=== PATIENT | male | born 1960 | race Caucasian/White ===

== ENCOUNTER 2016-03-14 15:47 | Inpatient (IN) | payer OTHER ==
[2016-03-14] VITALS (7 sets, daily range): BP systolic 132–138; BP diastolic 61–81; PULSE 97–109; RESP 18–28; TEMP 98.1; O2SAT 89–95
[~2016-03-14] VITALS: Ht 177.8 cm; Wt 151.4 kg
[~2016-03-14 15:47] MED LIST: ALPR.25 PO; ASPI81TA11 PO; ATOR40TA PO; BUPR-175 PO; GABA100C4 PO; HUMUINJ5 SQ; HYDR-3580 PO; LEXA10TA PO; LOSA25TA31 PO; METO25 PO; PLAV75TA PO; RANI150T PO
[2016-03-14] MEDS ORDERED: GABA100C4 PO (16:09)
[2016-03-14] MEDS ORDERED: LEXA20TA PO ×2 (16:09→19:48)
[2016-03-14] MEDS ORDERED: METO25TA3 PO ×2 (16:09→19:46)
[2016-03-14] MEDS ORDERED: LOSA25TA PO (16:09)
[2016-03-14] MEDS ORDERED: ATOR40TA16 PO (16:09)
[2016-03-14] MEDS ORDERED: INSU100V2 SQ (16:09)
[2016-03-14] MEDS ORDERED: RANI150T PO (16:09)
[2016-03-14] MEDS ORDERED: WELLTAB39 PO (16:09)
[2016-03-14] MEDS ORDERED: PLAV75TA29 PO (16:09)
[2016-03-14] MEDS ORDERED: GABA600T PO (16:09)
[2016-03-14] MEDS ORDERED: FUROSEMIDE 40 MG/4 ML VIAL IVP ONE (16:15)
[2016-03-14] MEDS ORDERED: SODIUM CHLORIDE 0.9% FLUSH 5 ML FLUSH IVF PRN (16:15)
--- NOTE | 2016-03-14 16:16 | PD ---
HPI Chief Complaint: Respiratory Symptoms Time Seen by Provider: 16:07 Travel History International Travel<30 days: No Contact w/Intl Traveler<30days: No Traveled to known affect area: No History of Present Illness HPI 55yo M with PMH of CHF, DM with insulin pump, CAD s/p cardiac stent 10/2015 ( Follows with Dr. Pearson) was sent by PMD's office for evaluation of dyspnea. Pt has been having worsening sob for days and gained 16 pounds in 1.5 weeks. Denies any chest pain, oxygen use at home, n/v, abdominal pain, focal weakness or numbness. PFSH Past Medical History Hx Anticoagulant Therapy: Yes (plavix) Arthritis: Yes Blood Disorders: No Anxiety: Yes Depression: Yes Heart Rhythm Problems: No Cancer: Yes (NON-HODGKINS LYMPHOMA) Cardiac Catheterization: No Cardiovascular Problems: Yes (NC, CHF) High Cholesterol: No Chemotherapy: Yes Chest Pain: Yes Congestive Heart Failure: No Diabetes: Yes Patient Takes Glucophage: No Diminished Hearing: No Endocrine: No Gastrointestinal Disorders: No GERD: Yes Glaucoma: No Genitourinary: Yes Hepatitis: No Hiatal Hernia: No Hypertension: Yes Immune Disorder: Yes Musculoskeletal: Yes Neurologic: No Reproductive: No Respiratory: Yes (COPD) Integumentary: No Immunizations Current: No Thyroid Disease: No Past Surgical History Abdominal Surgery: Yes (UMBILICAL HERNIA REPAIR) Coronary Artery Bypass Graft: No Insulin Pump: Yes Other Surgery: Yes (insulin pump ) Family History Family Myocardial Infarction: Yes (Mother, and Aunts) Social History Alcohol Use: No Tobacco Use: No (FORMER SMOKER) Substance Use: No Allergies-Medications (Allergen,Severity, Reaction): Coded Allergies: No Known Allergies (Unverified , 03/14/16) Reported Meds & Prescriptions Reported Meds & Active Scripts Active Reported Metoprolol Tartrate 25 Mg Tab 25 Mg PO BID Percocet (Oxycodone-Acetaminophen) 5-325 mg Tab 1 Tab PO Q6H PRN Lortab (Hydrocodone-Acetaminophen) 7.5-325 Mg Tab 1 Tab PO Q4H PRN Humulin R Inj (Insulin Human Regular) 1,000 Unit/10 Ml Vial 1 Units SQ ONCE Wellbutrin Xl 24 HR (Bupropion HCl) 300 Mg Tab 300 Mg PO DAILY Lexapro (Escitalopram Oxalate) 20 Mg Tab 20 Mg PO DAILY Gabapentin 600 Mg Tab 600 Mg PO BID Plavix (Clopidogrel Bisulfate) 75 Mg Tab 75 Mg PO DAILY Ranitidine (Ranitidine HCl) 150 Mg Tab 150 Mg PO BID Losartan (Losartan Potassium) 25 Mg Tab 25 Mg PO DAILY Atorvastatin (Atorvastatin Calcium) 40 Mg Tab 40 Mg PO HS Review of Systems Except as stated in HPI: all other systems reviewed are Neg Physical Exam Narrative GENERAL: 55yo M in moderate distress. SKIN: Warm and dry. HEAD: Atraumatic. Normocephalic. NECK: Trachea midline. No JVD. CARDIOVASCULAR: Regular rate and rhythm. No murmur appreciated. RESPIRATORY: + accessory muscle use. End expiratory wheezing bilaterally. GASTROINTESTINAL: Abdomen soft, non-tender, nondistended. Hepatic and splenic margins not palpable. MUSCULOSKELETAL: No obvious deformities. No clubbing. No cyanosis. +Pitting bilateral lower ext edema. NEUROLOGICAL: Awake and alert. No obvious cranial nerve deficits. Motor grossly within normal limits. Normal speech. PSYCHIATRIC: Appropriate mood and affect; insight and judgment normal. Data Data Last Documented VS Vital Signs Date Time Temp Pulse Resp B/P Pulse Ox O2 Delivery O2 Flow Rate FiO2 03/14/16 16:49 95 Nasal Cannula 5.00 03/14/16 16:04 22 03/14/16 15:50 98.1 97 136/80 Orders Complete Blood Count With Diff (03/14/16 16:07) Basic Metabolic Panel (Bmp) (03/14/16 16:07) B-Type Natriuretic Peptide (03/14/16 16:07) Act Partial Throm Time (Ptt) (03/14/16 16:07) Prothrombin Time / Inr (Pt) (03/14/16 16:07) Ckmb (Isoenzyme) Profile (03/14/16 16:07) Troponin I (03/14/16 16:07) Arterial Blood Gas (Abg) (03/14/16 16:07) Iv Access Insert/Monitor (03/14/16 16:07) Electrocardiogram (03/14/16 16:07) Ecg Monitoring (03/14/16 16:07) Oximetry (03/14/16 16:07) Oxygen Administration (03/14/16 16:07) Chest, Single Ap (03/14/16 16:07) Sodium Chloride 0.9% Flush (Ns Flush) (03/14/16 16:15) Furosemide Inj (Lasix Inj) (03/14/16 16:15) Methylprednisolone So Succ Inj (Solumedr (03/14/16 16:30) Albuterol-Ipratropium Neb (Duoneb Neb) (03/14/16 16:30) CKMB (03/14/16 16:15) CKMB% (03/14/16 16:15) Ct Pulmonary Angiogram (03/14/16 ) Labs Laboratory Tests Test 03/14/16 16:15 White Blood Count 8.0 TH/MM3 Red Blood Count 4.76 MIL/MM3 Hemoglobin 13.5 GM/DL Hematocrit 40.9 % Mean Corpuscular Volume 86.0 FL Mean Corpuscular Hemoglobin 28.3 PG Mean Corpuscular Hemoglobin 32.9 % Concent Red Cell Distribution Width 14.1 % Platelet Count 198 TH/MM3 Mean Platelet Volume 8.9 FL Neutrophils (%) (Auto) 64.1 % Lymphocytes (%) (Auto) 22.8 % Monocytes (%) (Auto) 9.9 % Eosinophils (%) (Auto) 2.3 % Basophils (%) (Auto) 0.9 % Neutrophils # (Auto) 5.1 TH/MM3 Lymphocytes # (Auto) 1.8 TH/MM3 Monocytes # (Auto) 0.8 TH/MM3 Eosinophils # (Auto) 0.2 TH/MM3 Basophils # (Auto) 0.1 TH/MM3 CBC Comment DIFF FINAL Differential Comment Prothrombin Time 11.1 SEC Prothromb Time International 1.0 RATIO Ratio Activated Partial 25.9 SEC Thromboplast Time Blood Gas Puncture Site RT RADIAL Blood Gas Patient Temperature 98.6 Blood Gas HCO3 29 mmol/L Blood Gas Base Excess 3.8 mmol/L Blood Gas Oxygen Saturation 89 % Arterial Blood pH 7.39 Arterial Blood Partial 48 mmHg Pressure CO2 Arterial Blood Partial 69 mmHG Pressure O2 Arterial Blood Oxygen Content 16.5 Vol % Arterial Blood 2.3 % Carboxyhemoglobin Arterial Blood Methemoglobin 2.1 % Blood Gas Hemoglobin 13.2 G/DL Oxygen Delivery Device NASAL CANNULA Blood Gas Liter Flow 3 L/M Sodium Level 140 MEQ/L Potassium Level 4.4 MEQ/L Chloride Level 104 MEQ/L Carbon Dioxide Level 28.4 MEQ/L Anion Gap 8 MEQ/L Blood Urea Nitrogen 23 MG/DL Creatinine 0.91 MG/DL Estimat Glomerular Filtration 86 ML/MIN Rate Random Glucose 199 MG/DL Calcium Level 8.5 MG/DL Total Creatine Kinase 184 U/L Creatine Kinase MB 4.1 NG/ML Troponin I LESS THAN 0.02 NG/ML B-Type Natriuretic Peptide 69 PG/ML MDM Medical Decision Making Medical Screen Exam Complete: Yes Emergency Medical Condition: Yes Interpretation(s) EKG: NSR 92bpm. Normal axis. Q wave III. No ST segment elevation or depression. Differential Diagnosis CHF exacerbation vs. PNA vs. ACS vs. COPD exacerbation (although pt has no history of it but is a former smoker) Narrative Course 55yo M with CHF, CAD, DM here with worsening sob and weight gain. Impression is CHF exacerbation. Pt is suppose to take lasix PRN but did not. Pt given lasix 40mg IV. Labs reviewed, no leukocytosis. BNP normal at 69. Troponin negative. BUN mildly elevated. Glucose 199. ABG showed that pt is hypoxic at 89% saturation on 3 L NC. pCO2 mildly elevated at 48. Pt's nasal cannula increased to 5 L. CXR showed compensated cardiomegaly. No parenchymal infiltrates. Pt reevaluated after duonebs x3 and methylprednisolone and states he feels better. Impression is more COPD exacerbation now. Pt still with expiratory wheezing bilaterally and now with increased air entry. Will still obtain CT angio to r/ o PE. CTA showed no PE. Will admit for COPD exacerbation. Diagnosis Primary Impression: COPD (chronic obstructive pulmonary disease) Qualified Code: J44.9 - Chronic obstructive pulmonary disease, unspecified COPD type Admitting Information Admitting Physician Requests: Admit Gabriella Kimble DO Mar 14, 2016 16:16 Gabriella Kimble DO Mar 14, 2016 16:16
[2016-03-14 16:23] LABS: AUTOMATED NEUTROPHIL # 5.1 TH/MM3 (1.8-7.7); BASOPHIL # 0.1 TH/MM3 (0-0.2); BASOPHIL % 0.9 % (0.0-2.0); EOSINOPHIL # 0.2 TH/MM3 (0-0.4); EOSINOPHIL % 2.3 % (0.0-4.0); HEMATOCRIT 40.9 % (39.0-51.0); HEMO FLAGS DIFF FINAL; LYMPH % 22.8 % (9.0-44.0); LYMPHOCYTE # 1.8 TH/MM3 (1.0-4.8); MEAN CORPUSCULAR HEMOGLOBIN 28.3 PG (27.0-34.0); MEAN CORPUSCULAR HGB CONC 32.9 % (32.0-36.0); MONO % 9.9 % (0.0-8.0); NEUT % 64.1 % (16.0-70.0); PLATELET COUNT 198 TH/MM3 (150-450); RED BLOOD COUNT 4.76 MIL/MM3 (4.50-5.90); RED CELL DISTRIBUTION WIDTH 14.1 % (11.6-17.2)
[2016-03-14] MEDS ORDERED: methylPREDNISolone SOD SUCC 125 MG/2 ML VIAL IVP ONE (16:30)
[2016-03-14 16:31] LABS: APTT (PATIENT) 25.9 SEC (24.3-30.1); PROTHROMBIN TIME - PATIENT 11.1 SEC (9.8-11.6)
[2016-03-14 16:37] LABS: BLOOD GAS BASE EXCESS 3.8 mmol/L (-2-2); BLOOD GAS CARBOXYHEMOGLOBIN 2.3 % (0-4); BLOOD GAS HCO3 29 mmol/L (22-26); BLOOD GAS METHEMOGLOBIN 2.1 % (0-2); BLOOD GAS O2 HGB SATURATION 89 % (90-100); BLOOD GAS OXYGEN CONTENT 16.5 Vol % (12.0-20.0); BLOOD GAS PCO2 48 mmHg (38-42); BLOOD GAS PO2 69 mmHG (61-120); BLOOD GAS TOTAL HGB 13.2 G/DL (12.0-16.0); CRITICAL VALUE YES; DRAW SITE RT RADIAL; LITER FLOW 3 L/M; NUMBER OF ARTERIAL PUNCTURES 1; OXYGEN DEVICE NASAL CANNULA; STAT YES; TEMP CORR TO 98.6
[2016-03-14 16:41] LABS: ANION GAP 8 MEQ/L (5-15); BICARBONATE 28.4 MEQ/L (21.0-32.0); BLOOD UREA NITROGEN 23 MG/DL (7-18); CHLORIDE 104 MEQ/L (98-107); GLOMERULAR FILTRATION RATE 86 ML/MIN (>89); POTASSIUM 4.4 MEQ/L (3.5-5.1); SODIUM (NA) 140 MEQ/L (136-145)
[2016-03-14 16:44] LABS: CREATINE KINASE 184 U/L (39-308)
[2016-03-14] MEDS: RESP: ALBUTEROL 2.5 MG/IPRATROPIUM 0.5 MG NEB (SCH) INH ×3 (16:47→17:14)
[2016-03-14] MEDS ORDERED: HYDR-3534 PO (16:54)
[2016-03-14] MEDS ORDERED: PERC5TAB12 PO (16:54)
[2016-03-14 16:57] LABS: CKMB 4.1 NG/ML (0.5-3.6)
--- NOTE | 2016-03-14 17:02 | RADRPT ---
EXAM DATE/TIME: 03/14/2016 16:31 [facility] COMPARISON: CHEST SINGLE AP, October 10, 2015, 17:23. INDICATIONS: Shortness of breath. MEDICAL HISTORY: Myocardial infarction. Congestive heart failure. Diabetes mellitus type II. SURGICAL HISTORY: Stents. ENCOUNTER: Initial ACUITY: 1 week PAIN SCORE: 0/10 LOCATION: Bilateral chest FINDINGS: There is compensated cardiomegaly with no overt congestive failure or parenchymal infiltrates. Portio n of bony skeleton visualized unremarkable. CONCLUSION: Compensated cardiomegaly. Fermin Parry MD FACR on March 14, 2016 at 16:51 Board Certified Radiologist. This report was verified electronically.
[2016-03-14] MEDS ORDERED: IOHEXOL 350 MG/ML 10 ML VIAL (for RAD DIAG) IV ONE (18:13)
[2016-03-14] MEDS ORDERED: NALOXONE HCL 0.4 MG/ML AMP IV PRN (18:15)
[2016-03-14] MEDS ORDERED: ACETAMINOPHEN 325 MG TAB PO PRN (18:15)
[2016-03-14] MEDS ORDERED: DEXTROSE 50% IN WATER 50 ML VIAL(D50) IV PUSH PRN (18:15)
[2016-03-14] MEDS ORDERED: SODIUM CHLORIDE 0.9% FLUSH 5 ML FLUSH FLUSH PRN (18:15)
[2016-03-14] MEDS ORDERED: ONDANSETRON HCL 4 MG/2 ML VIAL IVP PRN (18:15)
[2016-03-14] MEDS ORDERED: GLUCAGON 1 MG/ML VIAL OTHER PRN (18:15)
--- NOTE | 2016-03-14 18:24 | HHI.HP ---
[facility] Primary Care Physician Bebo Granados MD Admission Diagnosis COPD exacerbation, hypoxemia Diagnoses: Chief Complaint: Progressive worsening shortness of breath Travel History International Travel<30 Days: No Contact w/Intl Traveler <30 Da: No Traveled to Known Affected Are: No History of Present Illness This is an extremely pleasant 55-year-old gentleman with a past medical history which includes CAD status post stent to cover 2015, diabetes mellitus with insulin pump, anxiety/depression, CHF, non-Hodgkin's lymphoma treated with chemotherapy approximately 21 years ago, bilateral lower extremity neuropathy, chronic back pain, vertigo, hypertension. Patient presents to the emergency department today as he was sent by his primary care provider for progressive shortness of breath. Patient reports that he is unable to lay flat at night and he feels as though he is, "drowning." When patient lays flat he reports he has a nonproductive dry cough he has to use 3 pillows to sleep at night and has gained 19 pounds in the past 2 weeks. Patient is audibly wheezing with decreased air movement throughout. Patient believes the symptoms have been getting progressively worse over the past week but his thinks it has been longer than that. Patient reports his last long trip was over the summer when he drove to [place] and back. Patient reports no recent travel or extended periods of immobility. Although patient has been using a walker for the past 2 months due to poor balance Patient reports urinary incontinence only at night since September. Patient also reports numbness in the groin region since September this has been evaluated at [facility] and also being followed by Dr. Shah. Patient denies chest pain nausea vomiting diarrhea or constipation. Review of Systems Other All other systems reviewed and negative except as mentioned in history of present illness. Past Family Social History Past Medical History CAD status post stent to cover 2015, diabetes mellitus with insulin pump, anxiety/depression, CHF, non-Hodgkin's lymphoma treated with chemotherapy approximately 21 years ago, bilateral lower extremity neuropathy, chronic back pain, vertigo, hypertension. Past Surgical History Cardiac catheterization with stent placement October 2015 Umbilical hernia repair Right ankle fusion Reported Medications Percocet (Oxycodone-Acetaminophen) 5-325 mg Tab 1 Tab PO Q6H PRN Lortab (Hydrocodone-Acetaminophen) 7.5-325 Mg Tab 1 Tab PO Q4H PRN Humulin R Inj (Insulin Human Regular) 1,000 Unit/10 Ml Vial 1 Units SQ ONCE Wellbutrin Xl 24 HR (Bupropion HCl) 300 Mg Tab 300 Mg PO DAILY Lexapro (Escitalopram Oxalate) 20 Mg Tab 20 Mg PO DAILY Gabapentin 600 Mg Tab 600 Mg PO BID Gabapentin 100 Mg Cap 1,200 Mg PO BID Plavix (Clopidogrel Bisulfate) 75 Mg Tab 75 Mg PO DAILY Ranitidine (Ranitidine HCl) 150 Mg Tab 150 Mg PO BID Metoprolol Tartrate 25 Mg Tab 25 Mg PO DAILY Losartan (Losartan Potassium) 25 Mg Tab 25 Mg PO DAILY Atorvastatin (Atorvastatin Calcium) 40 Mg Tab 40 Mg PO HS Allergies: Coded Allergies: No Known Allergies (Unverified , 03/14/16) Active Ordered Medications Current Medications Medications (Trade) Dose Ordered Sig/Har[place] Start Time Stop Time Status Last Admin (NS Flush) 2 ml UNSCH PRN IVF 03/14/16 16:15 Family History Mother and sister both had CAD Mother also had pancreatic cancer Grandmother had breast cancer Social History Patient was at home with his denies EtOH use tobacco use or illicit drug use at this time Patient quit smoking cigarettes approximally 40 years ago prior to that he smoked one pack a day for 2 years Physical Exam Vital Signs Vital Signs Date Time Temp Pulse Resp B/P Pulse Ox O2 Delivery O2 Flow Rate FiO2 03/14/16 16:49 95 Nasal Cannula 5.00 03/14/16 16:10 89 03/14/16 16:10 94 Nasal Cannula 3 03/14/16 16:04 89 Room Air 03/14/16 16:04 22 03/14/16 15:50 98.1 97 18 136/80 90 Physical Exam GENERAL: This is a morbidly obese male visibly short of breath using accessory muscles HEAD: Atraumatic. Normocephalic. No temporal or scalp tenderness. EYES: Extraocular motions intact. No scleral icterus. No injection or drainage. CARDIOVASCULAR: Regular rate and rhythm without murmurs, gallops, or rubs. RESPIRATORY: Diminished air entry throughout with scattered expiratory wheezing GASTROINTESTINAL: Abdomen soft, non-tender, nondistended.No guarding. MUSCULOSKELETAL: Bilateral lower extremity 1-2+ edema No calf tenderness. Negative Homans sign bilaterally. NEUROLOGICAL: Awake and alert. Motor and sensory grossly within normal limits. 4out of 5 muscle strength in all muscle groups. Normal speech. Patient also reports numbness to groin area Laboratory Laboratory Tests Test 03/14/16 16:15 White Blood Count 8.0 Red Blood Count 4.76 Hemoglobin 13.5 Hematocrit 40.9 Mean Corpuscular Volume 86.0 Mean Corpuscular Hemoglobin 28.3 Mean Corpuscular Hemoglobin 32.9 Concent Red Cell Distribution Width 14.1 Platelet Count 198 Mean Platelet Volume 8.9 Neutrophils (%) (Auto) 64.1 Lymphocytes (%) (Auto) 22.8 Monocytes (%) (Auto) 9.9 Eosinophils (%) (Auto) 2.3 Basophils (%) (Auto) 0.9 Neutrophils # (Auto) 5.1 Lymphocytes # (Auto) 1.8 Monocytes # (Auto) 0.8 Eosinophils # (Auto) 0.2 Basophils # (Auto) 0.1 CBC Comment DIFF FINAL Differential Comment Prothrombin Time 11.1 Prothromb Time International 1.0 Ratio Activated Partial 25.9 Thromboplast Time Blood Gas Puncture Site RT RADIAL Blood Gas Patient Temperature 98.6 Blood Gas HCO3 29 Blood Gas Base Excess 3.8 Blood Gas Oxygen Saturation 89 Arterial Blood pH 7.39 Arterial Blood Partial 48 Pressure CO2 Arterial Blood Partial 69 Pressure O2 Arterial Blood Oxygen Content 16.5 Arterial Blood 2.3 Carboxyhemoglobin Arterial Blood Methemoglobin 2.1 Blood Gas Hemoglobin 13.2 Oxygen Delivery Device NASAL CANNULA Blood Gas Liter Flow 3 Sodium Level 140 Potassium Level 4.4 Chloride Level 104 Carbon Dioxide Level 28.4 Anion Gap 8 Blood Urea Nitrogen 23 Creatinine 0.91 Estimat Glomerular Filtration 86 Rate Random Glucose 199 Calcium Level 8.5 Total Creatine Kinase 184 Creatine Kinase MB 4.1 Troponin I LESS THAN 0.02 B-Type Natriuretic Peptide 69 Result Diagram: 03/14/16 1615 03/14/16 1615 Imaging Last Impressions Chest X-Ray 03/14/16 1607 Signed Impressions: Service Date/Time: Monday, March 14, 2016 16:31 - CONCLUSION: Compensated cardiomegaly. Fermin Parry MD FACR Assessment and Plan Assessment and Plan This is an extremely pleasant 55-year-old gentleman with a past medical history which includes CAD status post stent to cover 2016, diabetes mellitus with insulin pump, anxiety/depression, CHF, non-Hodgkin's lymphoma treated with chemotherapy approximately 21 years ago, bilateral lower extremity neuropathy, chronic back pain, vertigo, hypertension. Patient presents to the emergency department today as he was sent by his primary care provider for progressive shortness of breath. COPD exacerbation versus acute on chronic CHF exacerbation versus pulmonary embolism Compensated respiratory acidosis with hypoxemia CT angiogram to rule out PE pending 125 mg of Solu-Medrol given in emergency department will continue Solu- Medrol every 8 hours IV Duo nebs every 4 hours and when necessary Pulmonary consult 40 mg IV Lasix given times one in emergency department will continue 40 mg IV Lasix daily with potassium supplementation next line BNP only 69 Consult cardiology patient known to Dr. Pearson Diabetes mellitus on insulin pump Accu-Cheks before meals at bedtime with left low-dose sliding scale insulin coverage patient may continue to use insulin pump on the hospital CAD continue aspirin and Plavix and atorvastatin 40 mg daily at bedtime Check echocardiogram Hypertension continue losartan 25 mg daily and metoprolol at 25 mg daily Anxiety/depression continue Wellbutrin as well as Lexapro Peripheral neuropathy continue gabapentin DVT prophylaxis with Lovenox Plan of care discussed with ER provider, RN, patient and Dr. Terry ATTENDING NOTES I saw and evaluated the patient. I agree with the resident's finding and plan of care as documented above. Details of my evaluation are as follows: Mr. Bender is 55 years old male, increasing lower extremities edema, shortness of breath, orthopnea and faitgability for the last 2 weeks. with increase weight gain patient was supposed to be on diuretics but not taking history of COPD not 02 dependent on initial evaluation with wheezing given IV steroids and Lasix 40 mg IV patient feeling better Exam- occasional expiratory wheezes regular rhythm extremities- + edema Acute respiratory failure with hypoxemia - COPD exacerbation MARCIO suspect- d/w family- apneic episodes at night need sleep studies done as OP Continue on IV steroids. consult Pulmonary- Dr. Dunham get a pulmonary function tests walk test prior to DC- quallify for home 02 History of CAD S/P stent Peripheral Edema- normal BNP Dr. Pearson his slubber tender is consulted continue cardiac meds- BB, ARB, Plavix, Lasix DM on insulin pump - basal rate of about 1/2 units per hour sliding scale while in house. expect sugars to be elevated with steroids Lovenox/PPI for prophylaxis The exam, history, and the medical decision-making described in the above note were completed with the assistance of the mid-level provider. I reviewed and agree with the findings presented. I attest that I had a [id number] encounter with the patient on the same day, and personally performed and documented my assessment and findings in the medical record. Discussed Condition With Attending notes: Mr. Bender is 55 years old male, increasing lower extremities edema, shortness of breath, orthopnea and faitgability for the last 2 weeks. with increase weight gain patient was supposed to be on diuretics but not taking history of COPD not 02 dependent on initial evaluation with wheezing given IV steroids and Lasix 40 mg IV patient feeling better Exam- occasional expiratory wheezes regular rhythm extremities- + Leg edema Acute respiratory failure with hypoxemia COPD exacerbation MARCIO suspect- d/w family- apneic episodes at night need sleep studies done as OP History of CAD S/P stent Peripheral Edema - with edema on exam although BNP is not elevated Continue on IV steroids. consult Pulmonary- Dr. Charla Pearson his slubber tender is consulted. get Echo continue cardiac meds Lovenox for DVT prophylaxis will do a walk test prior to DC- to qualify for home 02 DM type 2 insulin requiring FF BS on steroids Lovenox/PPI for prophylaxis The exam, history, and the medical decision-making described in the above note were completed with the assistance of the mid-level provider. I reviewed and agree with the findings presented. I attest that I had a [id number] encounter with the patient on the same day, and personally performed and documented my assessment and findings in the medical record. Physician Certification 2 Midnight Certification Type: Admission for Inpatient Services Order for Inpatient Services The services are ordered in accordance with Medicare regulations or non- Medicare payer requirements, as applicable. In the case of services not specified as inpatient-only, they are appropriately provided as inpatient services in accordance with the 2-midnight benchmark. Estimated LOS (days): 4 days is the estimated time the patient will need to remain in the hospital, assuming treatment plan goals are met and no additional complications. Post-Hospital Plan: Home Morenita Cortez Mar 14, 2016 18:24 Lolis Gasca MD Mar 14, 2016 19:05
[2016-03-14] MEDS ORDERED: RESP: ALBUTEROL 2.5 MG/IPRATROPIUM 0.5 MG NEB (PRN) NEB (18:45)
--- NOTE | 2016-03-14 18:51 | RADRPT ---
EXAM DATE/TIME: 03/14/2016 18:05 [facility] COMPARISON: No previous studies available for comparison. INDICATIONS : Chest pain with shortness of breath past 2 weeks. IV CONTRAST: 65 cc Omnipaque 350 (iohexol) IV RADIATION DOSE: 31.76 CTDIvol (mGy) MEDICAL HISTORY : Myocardial infarction. Chronic obstructive pulmonary disease. Congestive heart failure.non-hodgkins l ymphoma SURGICAL HISTORY : insulin pump, cardiac catheterization ENCOUNTER: Initial ACUITY: 2 weeks PAIN SCALE: 8/10 LOCATION: Bilateral chest TECHNIQUE: Volumetric scanning of the chest was performed using a pulmonary embolism protocol MIP images were re constructed. Using automated exposure control and adjustment of the mA and/or kV according to patien t size, radiation dose was kept as low as reasonably achievable to obtain optimal diagnostic quality images. FINDINGS: No filling defects identified to suggest pulmonary embolic disease. No pleural or pericardial effusio n. There is dependent atelectasis in the lungs. No hilar, mediastinal or axillary adenopathy. Moderat e coronary calcifications. No acute findings in the upper abdomen. Fatty liver. No gallstones or bili chrystal ductal dilatation. CONCLUSION: 1. Negative for pulmonary embolus. Dependent atelectasis in the lungs. No effusions. No adenopathy. Silverio Hunt MD on March 14, 2016 at 18:45 Board Certified Radiologist. This report was verified electronically.
[2016-03-14] MEDS ORDERED: PANTOPRAZOLE SODIUM 40 MG VIAL IV PUSH SCH (19:30)
[2016-03-14] MEDS ORDERED: BUPR150CR PO (19:47)
[2016-03-14] MEDS: RESP: ALBUTEROL 2.5 MG/IPRATROPIUM 0.5 MG NEB (SCH) NEB (19:53)
[2016-03-14] MEDS ORDERED: ENOXAPARIN SODIUM 40 MG/0.4 ML SYRINGE SQ SCH (20:00)
[2016-03-14] MEDS: buPROPion HCL 150 MG SUSTAINED RELEASE TAB PO SCH (20:30)
[2016-03-14] MEDS: SODIUM CHLORIDE 0.9% FLUSH 5 ML FLUSH FLUSH SCH (20:53)
[2016-03-14] MEDS: FAMOTIDINE 20 MG TAB PO SCH (20:53)
[2016-03-14] MEDS: DOCUSATE SODIUM 100 MG CAP PO SCH (20:53)
[2016-03-14] MEDS: ENOXAPARIN SODIUM 40 MG/0.4 ML SYRINGE SQ SCH (20:53)
[2016-03-14] MEDS: ACETAMINOPHEN/HYDROcodone 325 MG/7.5 MG TAB PO PRN (20:54)
[2016-03-14] MEDS ORDERED: GABAPENTIN 400 MG CAP PO SCH (21:00)
[2016-03-14] MEDS: ATORVASTATIN 40 MG TAB PO SCH (21:03)
[2016-03-14] MEDS: INSULIN ASPART SUPPLEMENTAL SCALE SQ SCH (21:03)
[2016-03-14] MEDS ORDERED: METOPROLOL TARTRATE 25 MG TAB PO ONE (21:45)
[2016-03-14] MEDS ORDERED: METOPROLOL TARTRATE 25 MG TAB PO SCH (22:30)
[2016-03-14] MEDS: GABAPENTIN 300 MG CAP PO SCH (22:33)
[2016-03-15] VITALS (17 sets, daily range): BP systolic 128–164; BP diastolic 62–88; PULSE 90–116; RESP 16–22; TEMP 97.6; O2SAT 63–97
[2016-03-15] MEDS: methylPREDNISolone SOD SUCC 125 MG/2 ML VIAL IV PUSH SCH ×2 (00:30→09:35)
[2016-03-15] MEDS: ACETAMINOPHEN/HYDROcodone 325 MG/7.5 MG TAB PO PRN ×4 (00:31→21:08)
[2016-03-15] MEDS: RESP: ALBUTEROL 2.5 MG/IPRATROPIUM 0.5 MG NEB (SCH) NEB ×6 (00:56→19:21)
[2016-03-15 04:30] LABS: AUTOMATED NEUTROPHIL # 6.8 TH/MM3 (1.8-7.7); BASOPHIL % 0.1 % (0.0-2.0); HEMATOCRIT 39.4 % (39.0-51.0); HEMO FLAGS DIFF FINAL; LYMPH % 6.3 % (9.0-44.0); LYMPHOCYTE # 0.5 TH/MM3 (1.0-4.8); MEAN CELL VOLUME 85.6 FL (80.0-100.0); MEAN CORPUSCULAR HEMOGLOBIN 28.7 PG (27.0-34.0); MEAN CORPUSCULAR HGB CONC 33.5 % (32.0-36.0); MONO % 0.7 % (0.0-8.0); NEUT % 92.9 % (16.0-70.0); PLATELET COUNT 176 TH/MM3 (150-450); RED CELL DISTRIBUTION WIDTH 14.7 % (11.6-17.2); WHITE BLOOD COUNT 7.3 TH/MM3 (4.0-11.0)
[2016-03-15 05:00] LABS: BICARBONATE 25.9 MEQ/L (21.0-32.0); POTASSIUM 4.5 MEQ/L (3.5-5.1)
[2016-03-15] MEDS ORDERED: METOPROLOL TARTRATE 25 MG TAB PO SCH (09:00)
[2016-03-15] MEDS: DOCUSATE SODIUM 100 MG CAP PO SCH ×2 (09:33→21:09)
[2016-03-15] MEDS: INSULIN ASPART SUPPLEMENTAL SCALE SQ SCH ×4 (09:33→21:05)
[2016-03-15] MEDS: FUROSEMIDE 40 MG/4 ML VIAL IV PUSH SCH (09:34)
[2016-03-15] MEDS: LOSARTAN 25 MG TAB PO SCH (09:36)
[2016-03-15] MEDS: ASPIRIN EC 81 MG TABEC PO SCH (09:37)
[2016-03-15] MEDS: POTASSIUM CHLORIDE 20 MEQ CONTROLLED RELEASE TAB PO SCH (09:37)
[2016-03-15] MEDS: ESCITALOPRAM OXALATE 20 MG TAB PO SCH (09:38)
[2016-03-15] MEDS: GABAPENTIN 300 MG CAP PO SCH ×2 (09:39→21:10)
[2016-03-15] MEDS: METOPROLOL TARTRATE 25 MG TAB PO SCH ×2 (09:39→21:10)
[2016-03-15] MEDS: CLOPIDOGREL 75 MG TAB PO SCH (09:40)
[2016-03-15] MEDS: FAMOTIDINE 20 MG TAB PO SCH ×2 (09:40→21:09)
--- NOTE | 2016-03-15 10:05 | PD.CONS ---
HPI Service Cardiology Physicians Consult Requested By DARIEL Cortez Reason for Consult CHF exacerbation, ASHD Primary Care Physician Bebo Granados MD History of Present Illness The patient is a 55 year old male known to our practice with a cardiac history of ASHD s/p LAD stent 10/2015, chronic diastolic CHF, HLD, IDDM, tobacco history and obesity. Other notable history is COPD and hx of positive sleep apnea evaluation. The patient presented to the hospital per the recommendation of his PCP for progressively worsening SOB, lower extremity edema and 19 lb weight gain. He was instructed to use Aldactone PRN in the past for CHF symptoms, but the patient did not try to use the medication for symptom relief. He denies heaviness or pressure. His daughter is getting in [place] this weekend and wants to go home soon. (Socorro Brar) Review of Systems Consitutional: COMPLAINS OF: Weight gain, DENIES: Fatigue, Fever, Chills, Weight loss Eyes: DENIES: Amaurosis Fugax, Change in vision HEENT: DENIES: Lightheadedness, Change in hearing Respiratory: COMPLAINS OF: Shortness of breath, Wheezing, DENIES: See HPI, Cough, Snoring, Sputum production Cardiovascular: DENIES: See HPI, Chest pain, Palpitations, Syncope, Tachycardia Gastrointestinal: DENIES: Nausea, Vomiting, Change in bowel habits, Reflux, Bloody stools, Melena Genitourinary: COMPLAINS OF: Urinary incontinence Integumentary: DENIES: Rash Neurologic: DENIES: Tingling or numbness, Memory problems, Poor Balance, Stroke symptoms Musculoskeletal: COMPLAINS OF: Back pain, DENIES: Joint pain, Muscle pain, Limited range of motion Psychiatric: DENIES: Anxiety, Depression, Sleep disturbances Hematologic: DENIES: Bruising tendencies, Bleeding tendencies Endocrine: COMPLAINS OF: Weight gain, DENIES: Weight loss, Thyroid disease ( Socorro Brar) Past Family Social History Allergies: Coded Allergies: No Known Allergies (Unverified , 03/14/16) Past Medical History ASHD Diastolic CHF chronic IDDM COPD Sleep apnea Chronic back pain HLD Obesity Neurogenic bladder Peripheral neuropathy Chronic back pain Past Surgical History heart cath 10/2015 ankle surgery back surgery hernia repair Reported Medications Reviewed Active Ordered Medications Current Medications Medications (Trade) Dose Ordered Sig/Harvey Route Start Time Stop Time Status Last Admin (NS Flush) 2 ml UNSCH PRN FLUSH 03/14/16 18:15 (NS Flush) 2 ml BID FLUSH 03/14/16 21:00 03/15/16 10:33 (Tylenol) 650 mg Q4H PRN PO 03/14/16 18:15 (Zofran Inj) 4 mg Q6H PRN IVP 03/14/16 18:15 (Colace) 100 mg Q12H PO 03/14/16 20:00 03/15/16 09:33 (Narcan Inj) 0.4 mg UNSCH PRN IV 03/14/16 18:15 (Lasix Inj) 40 mg DAILY IV PUSH 03/15/16 09:00 03/15/16 09:34 (KCl) 20 meq DAILY PO 03/15/16 09:00 03/15/16 09:37 (D50w (Vial) Inj) 25 ml UNSCH PRN IV PUSH 03/14/16 18:15 (Glucagon Inj) 1 mg UNSCH PRN OTHER 03/14/16 18:15 (Lipitor) 40 mg HS PO 03/14/16 21:00 03/14/16 21:03 (Wellbutrin Sr) 150 mg BID PO 03/14/16 21:00 03/15/16 10:31 (Plavix) 75 mg DAILY PO 03/15/16 09:00 03/15/16 09:40 (Lexapro) 20 mg DAILY PO 03/15/16 09:00 03/15/16 09:38 (Cozaar) 25 mg DAILY PO 03/15/16 09:00 03/15/16 09:36 (Pepcid) 20 mg BID PO 03/14/16 21:00 03/15/16 09:40 (Ecotrin Ec) 81 mg DAILY PO 03/15/16 09:00 03/15/16 09:37 (Lovenox Inj) 40 mg Q24H SQ 03/14/16 20:00 03/14/16 20:53 ([place] 7.5-325 Mg) 1 tab Q6H PRN PO 03/14/16 20:45 03/15/16 05:51 (Neurontin) 600 mg BID PO 03/14/16 21:45 03/15/16 09:39 (Lopressor) 25 mg Q12HR PO 03/15/16 09:00 03/15/16 09:39 (SoluMEDROL INJ) 40 mg Q12H IV PUSH 03/15/16 21:00 Family History non contributory Social History Lives with , former smoker (Socorro Brar MAXWELL) Physical Exam Vital Signs Vital Signs Date Time Temp Pulse Resp B/P Pulse Ox O2 Delivery O2 Flow Rate FiO2 03/15/16 08:24 99 16 146/88 96 Nasal Cannula 2 03/15/16 04:38 97 22 128/85 96 Nasal Cannula 4 03/15/16 03:47 95 22 128/85 94 Nasal Cannula 4 03/15/16 02:48 95 22 128/85 95 Nasal Cannula 4 03/15/16 01:56 94 22 162/74 95 Nasal Cannula 4 03/15/16 00:32 98 20 164/74 95 Nasal Cannula 3 03/14/16 21:43 109 20 138/61 95 Nasal Cannula 5 03/14/16 20:00 94 Nasal Cannula 5.00 03/14/16 19:44 101 28 132/81 92 Nasal Cannula 5 03/14/16 16:49 95 Nasal Cannula 5.00 03/14/16 16:10 89 03/14/16 16:10 94 Nasal Cannula 3 03/14/16 16:04 89 Room Air 03/14/16 16:04 22 03/14/16 15:50 98.1 97 18 136/80 90 Physical Exam GENERAL: Middle aged male sitting up on walker, a bedside SKIN: Warm and dry. Multiple tattoos HEAD: Atraumatic. Normocephalic. EYES: Pupils equal and round. No scleral icterus. No injection or drainage. ENT: No nasal bleeding or discharge. Mucous membranes pink and moist. NECK: Trachea midline. No JVD. CARDIOVASCULAR: Regular rate and rhythm. RESPIRATORY: No accessory muscle use.nasal cannula O2, diminished bases, mild exp wheezing GASTROINTESTINAL: Abdomen soft, non-tender, nondistended. MUSCULOSKELETAL: Extremities without clubbing, cyanosis, No obvious deformities. 1+ BLE edema NEUROLOGICAL: Awake and alert. No obvious cranial nerve deficits. Normal speech. PSYCHIATRIC: Appropriate mood and affect; insight and judgment normal. Laboratory Laboratory Tests Test 03/14/16 03/15/16 16:15 04:12 White Blood Count 8.0 7.3 Red Blood Count 4.76 4.60 Hemoglobin 13.5 13.2 Hematocrit 40.9 39.4 Mean Corpuscular Volume 86.0 85.6 Mean Corpuscular Hemoglobin 28.3 28.7 Mean Corpuscular Hemoglobin 32.9 33.5 Concent Red Cell Distribution Width 14.1 14.7 Platelet Count 198 176 Mean Platelet Volume 8.9 9.0 Neutrophils (%) (Auto) 64.1 92.9 Lymphocytes (%) (Auto) 22.8 6.3 Monocytes (%) (Auto) 9.9 0.7 Eosinophils (%) (Auto) 2.3 0.0 Basophils (%) (Auto) 0.9 0.1 Neutrophils # (Auto) 5.1 6.8 Lymphocytes # (Auto) 1.8 0.5 Monocytes # (Auto) 0.8 0.0 Eosinophils # (Auto) 0.2 0.0 Basophils # (Auto) 0.1 0.0 CBC Comment DIFF FINAL DIFF FINAL Differential Comment Prothrombin Time 11.1 Prothromb Time International 1.0 Ratio Activated Partial 25.9 Thromboplast Time Blood Gas Puncture Site RT RADIAL Blood Gas Patient Temperature 98.6 Blood Gas HCO3 29 Blood Gas Base Excess 3.8 Blood Gas Oxygen Saturation 89 Arterial Blood pH 7.39 Arterial Blood Partial 48 Pressure CO2 Arterial Blood Partial 69 Pressure O2 Arterial Blood Oxygen Content 16.5 Arterial Blood 2.3 Carboxyhemoglobin Arterial Blood Methemoglobin 2.1 Blood Gas Hemoglobin 13.2 Oxygen Delivery Device NASAL CANNULA Blood Gas Liter Flow 3 Sodium Level 140 135 Potassium Level 4.4 4.5 Chloride Level 104 100 Carbon Dioxide Level 28.4 25.9 Anion Gap 8 9 Blood Urea Nitrogen 23 28 Creatinine 0.91 1.21 Estimat Glomerular Filtration 86 62 Rate Random Glucose 199 378 Calcium Level 8.5 8.6 Total Creatine Kinase 184 Creatine Kinase MB 4.1 Troponin I LESS THAN 0.02 B-Type Natriuretic Peptide 69 (Socorro Brar) Result Diagram: 03/15/16 0412 03/15/16 0412 Imaging Last 72 hours Impressions Chest X-Ray 03/14/16 1607 Signed Impressions: Service Date/Time: Monday, March 14, 2016 16:31 - CONCLUSION: Compensated cardiomegaly. Fermin Parry MD FACR CT Angiography 03/14/16 0000 Signed Impressions: Service Date/Time: Monday, March 14, 2016 18:05 - CONCLUSION: 1. Negative for pulmonary embolus. Dependent atelectasis in the lungs. No effusions. No adenopathy. Silverio Hunt MD (Socorro Brar) Assessment and Plan Assessment and Plan LATE ENTRY- patient seen and evaluated at 0930 today ASSESSMENT SOB - etiology seems to be combination of COPD exacerbation, diastolic CHF exacerbation and possible cor pulmonale. Pending echo. cardiac enzymes negative , no EKG changes concerning for ischemia. BNP low, no evidence of pulmonary edema, negative for PE. ABG shows compensated respiratory acidosis. COPD exacerbation. Compensated respiratory acidosis. History of untreated sleep apnea Acute on chronic diastolic CHF exacerbation ASHD s/p LAD stent 10/2015. On ASA and Plavix Obesity Deconditioning PLAN: Continue Lasix IV. Transition to PO. Will need Lasix on discharge Pending cardiac echo to evaluate for cor pulmonale and LV function Continue ASA, Plavix, BB and statin. Treat for COPD exacerbation Recommend outpatient PSG for sleep apnea Will follow up in the morning. Patient seen and evaluated by Dr. Pearson. (Socorro Brar) Assessment and Plan The exam, history, and the medical decision-making described in the above note were completed with the assistance of the mid-level provider. I reviewed and agree with the findings presented. I attest that I had a [id number] encounter with the patient on the same day, and personally performed and documented my assessment and findings in the medical record. Unususal CHF since cxray shows no edema and bnp normal will treat for both. ( Maricarmen Pearson MD) Socorro Brar Mar 15, 2016 10:05 Maricarmen Pearson MD Mar 15, 2016 14:38
[2016-03-15] MEDS: buPROPion HCL 150 MG SUSTAINED RELEASE TAB PO SCH ×2 (10:31→21:08)
[2016-03-15] MEDS: SODIUM CHLORIDE 0.9% FLUSH 5 ML FLUSH FLUSH SCH ×2 (10:33→21:09)
--- NOTE | 2016-03-15 11:44 | MB ---
cc: BETSY DUTTON MD DATE OF CONSULTATION 03/15/2016 REASON FOR CONSULTATION COPD exacerbation, shortness of breath HISTORY OF PRESENT ILLNESS Mr. 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 He has a longstanding history of diabetes mellitus and diabetic neuropathy, history of coronary status post stent placement and he has an insulin pump. The patient to came to the hospital with worsening of his shortness of breath. As per his , it is going on for the last couple of months, but for the last few days, she is getting more short of breath. She also heard some wheezing. He has cough, but no sputum production. No fever or chills. No night sweats. He has gained weight. The patient was evaluated in the hospital. His blood gas shows a of pH 7.39, pCO2 48, partial pressure of oxygen 69, bicarb 29 on 3 liters nasal cannula. His WBC is 7.3, hemoglobin 13.2, hematocrit 39.4, MCV 85, platelet count 176. Sodium 135, potassium 4.5, chloride 100, CO2 26, BUN 28, creatinine 1.21, glucose 378. His INR is 1.0. CT scan of the chest is negative for pulmonary embolism. He has dependent atelectasis. PAST MEDICAL HISTORY His past medical history is significant for a history of: 1. Non-Hodgkin lymphoma status post chemotherapy done in [place] 21 years ago. 2. History of diabetes mellitus. 3. Neuropathy 4. Chronic back pain, spinal stenosis 5. Hypertension 6. Coronary disease status post stent placement 7. Anxiety depression 8. Incontinence PAST SURGICAL HISTORY History of umbilical hernia surgery. MEDICATIONS He is currently takin. Lasix 40 mg a day 2. Potassium 20 mEq 3. Plavix 75 mg a day 4. Lexapro 20 mg a day 5. Cozaar 25 mg a day 6. Aspirin 81 mg 7. Solu-Medrol 60 mg q6h 8. Lopressor 25 mg [id number] 9. Neurontin 600 mg twice a day 10. Lipitor 40 mg 11. Wellbutrin 150 mg twice a day 12. Famotidine 20 mg a day 13. Lortab for pain 14. Lovenox 40 mg a day ALLERGIES NO KNOWN DRUG ALLERGIES. SOCIAL HISTORY He recently got . He has four children. His had three children. No history of smoking or alcohol abuse. FAMILY HISTORY Noncontributory REVIEW OF SYSTEMS He walks only a short distance. He cannot walk mainly because of his back pain. He sees Dr. Shah. He also has a insulin pump. He has gained weight. He does not sleep well. He has a history of sleep apnea and he has not been using C-PAP machine. PHYSICAL EXAMINATION This is an obese male mildly short of breath not in acute distress. VITAL SIGNS: Blood pressure 146/88, heart rate 90s, respirations 16, temperature 98, saturation 96% on two liters nasal cannula. HEENT: Examination unremarkable. NECK: Supple. JVP not raised. CHEST: He has end expiratory rhonchi. CARDIOVASCULAR: S1 and S2 normal. ABDOMEN: Soft, nondistended. Bowel sounds present. EXTREMITIES: 1+ pedal edema. IMPRESSION 1. Shortness of breath with mild hypoxia. No pulmonary embolism 2. Obstructive sleep apnea 3. Coronary artery disease status post stent placement 4. Obesity 5. Diabetes mellitus 6. Neuropathy 7. History of non-Hodgkin's lymphoma. PLAN We will check his room air oxygen to see if he going to need supplemental oxygen. We will decrease his Solu-Medrol 40 mg [id number]. Monitor his blood sugar closely. Continue aerosol treatment and check his pulmonary function study and schedule him for a sleep study as an outpatient. Further treatment will depend on the course in the hospital. Thank you, Dr. Gasca, for this consult. I discussed the patient's condition with him and his at the bedside. MD MICHAELA Funes/EMILY /10:55 AM /11:30 AM
--- NOTE | 2016-03-15 13:48 | EKG ---
Date Performed: 03/14/2016 Time Performed: 17:17:36 PTAGE: 55 years EKG: Sinus rhythm POSSIBLE INFERIOR MYOCARDIAL INFARCTION BORDERLINE ECG Compared to prior tracing no significant reyes ge PREVIOUS TRACING : 10/27/2015 05.22 DOCTOR: Breanne Bronson Interpretating Date/Time 03/15/2016 13:45:52
--- NOTE | 2016-03-15 14:29 | HHI.PR ---
Subjective Remarks getting around no chest pains still with ankle edema Objective Vitals Vital Signs Date Time Temp Pulse Resp B/P Pulse Ox O2 Delivery O2 Flow Rate FiO2 03/15/16 12:00 96 18 132/72 96 Nasal Cannula 2 03/15/16 08:24 99 16 146/88 96 Nasal Cannula 2 03/15/16 07:55 95 Nasal Cannula 4.00 03/15/16 04:38 97 22 128/85 96 Nasal Cannula 4 03/15/16 03:47 95 22 128/85 94 Nasal Cannula 4 03/15/16 02:48 95 22 128/85 95 Nasal Cannula 4 03/15/16 01:56 94 22 162/74 95 Nasal Cannula 4 03/15/16 00:32 98 20 164/74 95 Nasal Cannula 3 03/14/16 21:43 109 20 138/61 95 Nasal Cannula 5 03/14/16 20:00 94 Nasal Cannula 5.00 03/14/16 19:44 101 28 132/81 92 Nasal Cannula 5 03/14/16 16:49 95 Nasal Cannula 5.00 03/14/16 16:10 89 03/14/16 16:10 94 Nasal Cannula 3 03/14/16 16:04 89 Room Air 03/14/16 16:04 22 03/14/16 15:50 98.1 97 18 136/80 90 I/O 03/14/16 03/14/16 03/14/16 03/15/16 03/15/16 03/15/16 07:00 15:00 23:00 07:00 15:00 23:00 Intake Total 120 ml Balance 120 ml Intake Oral 120 ml Result Diagram: 03/15/16 0412 03/15/16 0412 Imaging Last Impressions Chest X-Ray 03/14/16 1607 Signed Impressions: Service Date/Time: Monday, March 14, 2016 16:31 - CONCLUSION: Compensated cardiomegaly. Fermin Parry MD FACR CT Angiography 03/14/16 0000 Signed Impressions: Service Date/Time: Monday, March 14, 2016 18:05 - CONCLUSION: 1. Negative for pulmonary embolus. Dependent atelectasis in the lungs. No effusions. No adenopathy. Silverio Hunt MD Objective Remarks awake and alert oriented x 3 anicteric lungs- decreased breath sounds regular rhythm abdomen soft, nontender + bilateral ankle edema A/P Assessment and Plan Acute respiratory failure with hypoxemia COPD exacerbation MARCIO suspect- d/w family- apneic episodes at night need sleep studies done as OP History of CAD S/P stent Peripheral Edema Diastolic heart failure - Dr. Pearson and Dr. Dunham ff continue cardiac meds Lovenox for DVT prophylaxis Echo pending will do a walk test prior to DC- DM insulin requiring- on insulin pump 1.2 units basal rate sliding scale Novolog here will be high due to steroids. check hemoglobin A1C Obesity- BMI 47 very motivated with diet and weight loss program Lovenox/PPI for prophylaxis Lolis Gasca MD Mar 15, 2016 14:29
--- NOTE | 2016-03-15 15:28 | EC ---
Study Study Date:03/15/2016 STUDY CONCLUSIONS SUMMARY LEFT VENTRICLE: The cavity size was normal. Wall thickness was normal. Systolic function was normal. The estimated ejection fraction was in the range of 55% to 60%. Wall motion was normal; there were no regional wall motion abnormalities. If LV function is below 40, please consider prescribing an ACEI or ARB or document rationale for non-use. PROCEDURE DATA STUDY STATUS: Elective. Procedure: Transthoracic echocardiography. Image quality was poor. Scanning was performed from the parasternal, apical, and subcostal acoustic windows. Study completion: The patient tolerated the procedure well. Transthoracic echocardiography. M-mode, complete 2D, complete spectral Doppler, and color Doppler. Height: Height: 70in. Weight: Weight: 329.3lb. Body mass index: BMI: 47.4kg/m^2. Body surface area: BSA: 2.58m^2. Patient status: Inpatient. CARDIAC ANATOMY LEFT VENTRICLE: The cavity size was normal. Wall thickness was normal. Systolic function was normal. The estimated ejection fraction was in the range of 55% to 60%. Wall motion was normal; there were no regional wall motion abnormalities. AORTIC VALVE: Trileaflet; normal thickness leaflets. Doppler: Transvalvular velocity was within the normal range. There was no stenosis. No regurgitation. AORTA: Aortic root: The aortic root was normal in size. MITRAL VALVE: Structurally normal valve. Doppler: Transvalvular velocity was within the normal range. There was no evidence for stenosis. No regurgitation. LEFT ATRIUM: The atrium was normal in size. RIGHT VENTRICLE: The cavity size was normal. Wall thickness was normal. PULMONIC VALVE: Doppler: Transvalvular velocity was within the normal range. There was no evidence for stenosis. No regurgitation. TRICUSPID VALVE: Structurally normal valve. Doppler: Transvalvular velocity was within the normal range. No regurgitation. PULMONARY ARTERY: The main pulmonary artery was normal-sized. Systolic pressure was within the normal range. RIGHT ATRIUM: The atrium was normal in size. PERICARDIUM: There was no pericardial effusion. SYSTEMIC VEINS: Inferior vena cava: The vessel was normal in size. Patient weight: 329.3lb _Ejection fraction:_ 65-75% _Fractional shortening:_ 32% up to 5Kg 5-11.5Kg 11.6-22.9Kg 23-45Kg 45-57Kg Aortic Root 7-13 <17 13-22 17-27 17-27 LA diam 6-13 <23 24-38 33-47 37-40 RVID 10-17 7-15 7-15 7-18 8-17 LVIDd 12-22 <32 24-38 33-47 37-40 LVPW 2-4 3-6 5-7 6-8 7-8 IVS 2-4 3-6 5-7 6-8 7-8 BASIC MEASUREMENTS ADULT NORMAL Left ventricle LV internal dimension, ED, chordal level, 45.1 mm 43-52 PLAX LV internal dimension, ES, chordal level, 31.5 mm 23-38 PLAX Fractional shortening, chordal level, PLAX 30 % >29 LV posterior wall thickness, ED 10.4 mm IVS/LVPW ratio, ED 0.99 <1.3 Ventricular septum Septal thickness, ED 10.3 mm Aorta Root diameter, ED 29 mm Left atrium Anterior-posterior dimension 39 mm Anterior-posterior dimension index 1.51 cm/m^2 <2.2 LEGEND: Mean values are shown as u=mean value. Asterisk (*) messina values outside specified normal range. Prepared and signed by Gwendolyn Sanchez [id number]
[2016-03-15] MEDS: ATORVASTATIN 40 MG TAB PO SCH (21:10)
[2016-03-15] MEDS: ENOXAPARIN SODIUM 40 MG/0.4 ML SYRINGE SQ SCH (21:10)
[2016-03-15] MEDS: methylPREDNISolone SOD SUCC 40 MG/1 ML VIAL IV PUSH SCH (21:11)
[2016-03-16] VITALS (8 sets, daily range): BP systolic 125–150; BP diastolic 62–86; PULSE 85–95; RESP 19–20; TEMP 97.5–97.8; O2SAT 96–98
[2016-03-16] MEDS: RESP: ALBUTEROL 2.5 MG/IPRATROPIUM 0.5 MG NEB (SCH) NEB ×5 (00:51→15:50)
[2016-03-16] MEDS: INSULIN ASPART SUPPLEMENTAL SCALE SQ SCH ×2 (06:35→12:59)
[2016-03-16 07:29] LABS: ANION GAP 10 MEQ/L (5-15); BLOOD UREA NITROGEN 29 MG/DL (7-18); CHLORIDE 98 MEQ/L (98-107); GLOMERULAR FILTRATION RATE 80 ML/MIN (>89); POTASSIUM 4.8 MEQ/L (3.5-5.1); SODIUM (NA) 136 MEQ/L (136-145)
[2016-03-16] MEDS: ASPIRIN EC 81 MG TABEC PO SCH (08:51)
[2016-03-16] MEDS: POTASSIUM CHLORIDE 20 MEQ CONTROLLED RELEASE TAB PO SCH (08:51)
[2016-03-16] MEDS: LOSARTAN 25 MG TAB PO SCH (08:51)
[2016-03-16] MEDS: FAMOTIDINE 20 MG TAB PO SCH (08:51)
[2016-03-16] MEDS: GABAPENTIN 300 MG CAP PO SCH (08:51)
[2016-03-16] MEDS: METOPROLOL TARTRATE 25 MG TAB PO SCH (08:51)
[2016-03-16] MEDS: DOCUSATE SODIUM 100 MG CAP PO SCH (08:52)
[2016-03-16] MEDS: CLOPIDOGREL 75 MG TAB PO SCH (08:52)
[2016-03-16] MEDS: ESCITALOPRAM OXALATE 20 MG TAB PO SCH (08:52)
[2016-03-16] MEDS: FUROSEMIDE 40 MG/4 ML VIAL IV PUSH SCH (08:52)
[2016-03-16] MEDS: methylPREDNISolone SOD SUCC 40 MG/1 ML VIAL IV PUSH SCH (08:53)
[2016-03-16] MEDS: SODIUM CHLORIDE 0.9% FLUSH 5 ML FLUSH FLUSH SCH (08:58)
--- NOTE | 2016-03-16 09:15 | PD.CARD.PN ---
Subjective Subjective Remarks Feels better. Has airway congestion he is having difficulty clearing. No CP. SOB and edema better Objective Medications Current Medications Medications (Trade) Dose Ordered Sig/Harvey Route Start Time Stop Time Status Last Admin (NS Flush) 2 ml UNSCH PRN FLUSH 03/14/16 18:15 (NS Flush) 2 ml BID FLUSH 03/14/16 21:00 03/16/16 08:58 (Tylenol) 650 mg Q4H PRN PO 03/14/16 18:15 (Zofran Inj) 4 mg Q6H PRN IVP 03/14/16 18:15 (Colace) 100 mg Q12H PO 03/14/16 20:00 03/16/16 08:52 (Narcan Inj) 0.4 mg UNSCH PRN IV 03/14/16 18:15 (Lasix Inj) 40 mg DAILY IV PUSH 03/15/16 09:00 03/16/16 08:52 (KCl) 20 meq DAILY PO 03/15/16 09:00 03/16/16 08:51 (D50w (Vial) Inj) 25 ml UNSCH PRN IV PUSH 03/14/16 18:15 (Glucagon Inj) 1 mg UNSCH PRN OTHER 03/14/16 18:15 (Lipitor) 40 mg HS PO 03/14/16 21:00 03/15/16 21:10 (Wellbutrin Sr) 150 mg BID PO 03/14/16 21:00 03/15/16 21:08 (Plavix) 75 mg DAILY PO 03/15/16 09:00 03/16/16 08:52 (Lexapro) 20 mg DAILY PO 03/15/16 09:00 03/16/16 08:52 (Cozaar) 25 mg DAILY PO 03/15/16 09:00 03/16/16 08:51 (Pepcid) 20 mg BID PO 03/14/16 21:00 03/16/16 08:51 (Ecotrin Ec) 81 mg DAILY PO 03/15/16 09:00 03/16/16 08:51 (Lovenox Inj) 40 mg Q24H SQ 03/14/16 20:00 03/15/16 21:10 ([place] 7.5-325 Mg) 1 tab Q6H PRN PO 03/14/16 20:45 03/15/16 21:08 (Neurontin) 600 mg BID PO 03/14/16 21:45 03/16/16 08:51 (Lopressor) 25 mg Q12HR PO 03/15/16 09:00 03/16/16 08:51 (SoluMEDROL INJ) 40 mg Q12H IV PUSH 03/15/16 21:00 03/16/16 08:53 Vital Signs / I&O Vital Signs Date Time Temp Pulse Resp B/P Pulse Ox O2 Delivery O2 Flow Rate FiO2 03/16/16 08:50 94 19 125/75 98 03/16/16 06:00 94 03/16/16 05:00 85 03/16/16 04:00 86 03/16/16 04:00 97.5 90 20 150/86 96 03/16/16 03:00 93 03/16/16 02:00 95 03/16/16 01:00 88 03/16/16 00:00 97.8 95 20 130/62 96 03/16/16 00:00 90 03/15/16 23:00 92 03/15/16 22:00 100 03/15/16 21:00 105 03/15/16 20:00 97.6 106 20 152/71 93 03/15/16 20:00 106 03/15/16 20:00 106 03/15/16 19:26 97 03/15/16 19:00 104 03/15/16 18:22 100 18 132/67 96 Nasal Cannula 2 03/15/16 16:01 18 03/15/16 15:00 90 18 137/62 96 Nasal Cannula 2 03/15/16 12:00 96 18 132/72 96 Nasal Cannula 2 I/O 03/15/16 03/15/16 03/15/16 03/16/16 03/16/16 03/16/16 07:00 15:00 23:00 07:00 15:00 23:00 Intake Total 1000 ml 240 ml Output Total 1250 ml 900 ml Balance -250 ml -660 ml Intake Oral 1000 ml 240 ml Output Urine Total 1250 ml 900 ml # Voids 3 # Bowel Movements 0 Physical Exam GENERAL: in bed at 60 degrees, sleeping, easy to arouse SKIN: Warm and dry. HEAD: Normocephalic. EYES: No scleral icterus. No injection or drainage. NECK: Supple, trachea midline.Difficulty evaluating JVD due to body habitus CARDIOVASCULAR: Regular rate and rhythm without murmurs, gallops, or rubs. RESPIRATORY: Breath sounds equal bilaterally. No accessory muscle use. Diminished bilateral GASTROINTESTINAL: Abdomen soft, non-tender, nondistended. MUSCULOSKELETAL: No cyanosis, 1+ BLE edema BACK: Nontender without obvious deformity Laboratory Laboratory Tests Test 03/16/16 05:30 Sodium Level 136 MEQ/L Potassium Level 4.8 MEQ/L Chloride Level 98 MEQ/L Carbon Dioxide Level 28.0 MEQ/L Anion Gap 10 MEQ/L Blood Urea Nitrogen 29 MG/DL Creatinine 0.97 MG/DL Estimat Glomerular Filtration 80 ML/MIN Rate Random Glucose 390 MG/DL Calcium Level 8.8 MG/DL Imaging Last 72 hours Impressions Chest X-Ray 03/14/16 1607 Signed Impressions: Service Date/Time: Monday, March 14, 2016 16:31 - CONCLUSION: Compensated cardiomegaly. Fermin Parry MD FACR CT Angiography 03/14/16 0000 Signed Impressions: Service Date/Time: Monday, March 14, 2016 18:05 - CONCLUSION: 1. Negative for pulmonary embolus. Dependent atelectasis in the lungs. No effusions. No adenopathy. Silverio Hunt MD Assessment and Plan Assessment and Plan ASSESSMENT SOB - etiology seems to be combination of COPD exacerbation and diastolic CHF exacerbation. Mostly COPD exacerbation. Cardiac echo no acute etiology COPD exacerbation. Compensated respiratory acidosis. History of untreated sleep apnea Chronic diastolic CHF ASHD s/p LAD stent 10/2015. On ASA and Plavix Obesity Deconditioning PLAN: Continue Lasix IV. Transition to Lasix 20 mg daily PO for discharge Continue ASA, Plavix, BB and statin. Treat for COPD exacerbation Recommend outpatient PSG for sleep apnea The patient is stable for discharge from cardiac standpoint. Will follow up in the office in 2 weeks with daily weights and home BP Assessment and plan discussed with Socorro Ulrich Mar 16, 2016 09:15
[2016-03-16] MEDS: buPROPion HCL 150 MG SUSTAINED RELEASE TAB PO SCH (09:19)
[2016-03-16] MEDS: ACETAMINOPHEN/HYDROcodone 325 MG/7.5 MG TAB PO PRN (09:19)
--- NOTE | 2016-03-16 15:14 | HHI.PR ---
Subjective Remarks feeling much better swelling improved Objective Vitals Vital Signs Date Time Temp Pulse Resp B/P Pulse Ox O2 Delivery O2 Flow Rate FiO2 03/16/16 08:50 94 19 125/75 98 03/16/16 06:00 94 03/16/16 05:00 85 03/16/16 04:00 86 03/16/16 04:00 97.5 90 20 150/86 96 03/16/16 03:00 93 03/16/16 02:00 95 03/16/16 01:00 88 03/16/16 00:00 97.8 95 20 130/62 96 03/16/16 00:00 90 03/15/16 23:00 92 03/15/16 22:00 100 03/15/16 21:00 105 03/15/16 20:00 97.6 106 20 152/71 93 03/15/16 20:00 106 03/15/16 20:00 106 03/15/16 19:26 97 03/15/16 19:00 104 03/15/16 18:22 100 18 132/67 96 Nasal Cannula 2 03/15/16 16:01 18 I/O 03/15/16 03/15/16 03/15/16 03/16/16 03/16/16 03/16/16 07:00 15:00 23:00 07:00 15:00 23:00 Intake Total 1000 ml 240 ml Output Total 1250 ml 900 ml Balance -250 ml -660 ml Intake Oral 1000 ml 240 ml Output Urine Total 1250 ml 900 ml # Voids 3 # Bowel Movements 0 Result Diagram: 03/15/16 0412 03/16/16 0530 Imaging Last Impressions Chest X-Ray 03/14/16 1607 Signed Impressions: Service Date/Time: Monday, March 14, 2016 16:31 - CONCLUSION: Compensated cardiomegaly. Fermin Parry MD FACR CT Angiography 03/14/16 0000 Signed Impressions: Service Date/Time: Monday, March 14, 2016 18:05 - CONCLUSION: 1. Negative for pulmonary embolus. Dependent atelectasis in the lungs. No effusions. No adenopathy. Silverio Hunt MD Objective Remarks awake and alert oriented x 3 anicteric lungs- decreased breath sounds regular rhythm abdomen soft, nontender trace ankle edema A/P Assessment and Plan Acute respiratory failure with hypoxemia COPD exacerbation MARCIO suspect- d/w family- apneic episodes at night need sleep studies done as OP History of CAD S/P stent Peripheral Edema Diastolic heart failure - Dr. Pearson and Dr. Dunham ff continue cardiac meds Lovenox for DVT prophylaxis Echo 50-60% EF change to po Lasix 40 mg po daily change to po Prednisone - short course on discharge DM insulin requiring- on insulin pump 1.2 units basal rate sliding scale Novolog here will be high due to steroids. patient and will restart his insulin pump as OP Obesity- BMI 47 very motivated with diet and weight loss program Lovenox/PPI for prophylaxis DC today patient flying to [place] for daughter's wedding diet- heart healthy ADA diet activity weightbearing as tolerated. no strenuous activity Meds as above- scripts. continue insulin pump FF up with PCP, Dr. Pearson and Dr. Dunham as OP Lolis Gasca MD Mar 16, 2016 15:14
[2016-03-16] MEDS ORDERED: ASPI81TA11 PO (15:38)
[2016-03-16] MEDS ORDERED: SPIRCAP INH (15:38)
[2016-03-16] MEDS ORDERED: VENTAER INH (15:38)
[2016-03-16] MEDS ORDERED: PRED20 PO (15:39)
[2016-03-16] MEDS ORDERED: FURO1TAB60 PO (15:40)
[2016-03-16] MEDS ORDERED: TIOTROPIUM BROMIDE 18 MCG INH INH SCH (16:00)
[2016-03-16] MEDS ORDERED: ALBUTEROL SULFATE 90 MCG/ACT HFA 8 GM INHALER INH SCH (16:00)
[2016-03-16] MEDS ORDERED: POTA20TA5 PO (16:00)
[2016-03-16 16:04] LABS: HEMOGLOBIN A1a 1.1 %; HEMOGLOBIN A1b 1.1 %; HEMOGLOBIN Ao 78.6 %; HEMOGLOBIN F 1.4 %; HEMOGLOBIN LA1C 4.2 %; HEMOGLOBIN P3 5.5 %
--- NOTE | 2016-03-16 16:50 | HHI.PR ---
Subjective Remarks 55 YOWm with MARCIO,SOB, No PE Breathing better Weaned to RA Echo No PHTN, good EF Anxious to go home has congestion, not abl eto expactorate Objective Vital Signs Vital Signs Date Time Temp Pulse Resp B/P Pulse Ox O2 Delivery O2 Flow Rate FiO2 03/16/16 08:50 94 19 125/75 98 03/16/16 06:00 94 03/16/16 05:00 85 03/16/16 04:00 86 03/16/16 04:00 97.5 90 20 150/86 96 03/16/16 03:00 93 03/16/16 02:00 95 03/16/16 01:00 88 03/16/16 00:00 97.8 95 20 130/62 96 03/16/16 00:00 90 03/15/16 23:00 92 03/15/16 22:00 100 03/15/16 21:00 105 03/15/16 20:00 97.6 106 20 152/71 93 03/15/16 20:00 106 03/15/16 20:00 106 03/15/16 19:26 97 03/15/16 19:00 104 03/15/16 18:22 100 18 132/67 96 Nasal Cannula 2 I/O 03/15/16 03/15/16 03/15/16 03/16/16 03/16/16 03/16/16 07:00 15:00 23:00 07:00 15:00 23:00 Intake Total 1000 ml 240 ml Output Total 1250 ml 900 ml Balance -250 ml -660 ml Intake Oral 1000 ml 240 ml Output Urine Total 1250 ml 900 ml # Voids 3 # Bowel Movements 0 Result Diagram: 03/15/16 0412 03/16/16 0530 Objective Remarks GENERAL: WBWN WM, NAD SKIN: Warm and dry. HEAD: Normocephalic. EYES: No scleral icterus. No injection or drainage. NECK: Supple, trachea midline. No JVD or lymphadenopathy. CARDIOVASCULAR: Regular rate and rhythm without murmurs, gallops, or rubs. RESPIRATORY: Breath sounds equal bilaterally. No accessory muscle use. GASTROINTESTINAL: Abdomen soft, non-tender, nondistended. MUSCULOSKELETAL: No cyanosis, or edema. BACK: Nontender without obvious deformity. No CVA tenderness. A/P Assessment and Plan Dysnoea, no PE MARCIO Obesity CAD, s/p Stent DM neuropathy PLAN: Stable on Ra Use Acapella Stable to Dc Will need sleep study as out pt Santos Dunham MD Mar 16, 2016 16:50
[2016-03-16] MEDS ORDERED: ALBUTEROL SULFATE 90 MCG/ACT HFA 18 GM INHALER INH SCH (18:00)
--- NOTE | 2016-03-18 10:08 | RSPPFT ---
DATE OF PROCEDURE: 03/16/16 COMMENTS: Spirometry shows FVC of 2.3 at 50% of predicted, FEV1 of 2.0 at 54$, FEV1/FVC ratio is normal. Flow is normal at FEF 25-75. There is a paradoxical response after bronchodilator treatment. Flow volume loop indicates a restrictive pattern. IMPRESSION: 1. Severe restrictive lung disease. 2. Paradoxical response to bronchodilator treatment. 3. Lung volumes with diffusion capacity will be needed for further evaluation.
== END 2016-03-16 18:14 | disposition home or self-care (01) | DRG 291 ==
LOC: NEPE 15:47 → NEDA 17:46 → OBSVTOIN 18:12 → NEDH 22:14 → HCIS 03-15 18:45
PROVIDERS: ADMIT Internal Medicine; ATTEND Internal Medicine
DX: I11.0 Hypertensive heart disease with heart failure (principal); J96.01 Acute respiratory failure with hypoxia; E87.2 Acidosis; I27.81 Cor pulmonale (chronic); Z68.42 Body mass index [BMI] 45.0-49.9, adult; E11.40 Type 2 diabetes mellitus with diabetic neuropathy, unspecified; J44.1 Chronic obstructive pulmonary disease with (acute) exacerbation; J98.11 Atelectasis; I50.33 Acute on chronic diastolic (congestive) heart failure; I25.10 Atherosclerotic heart disease of native coronary artery without angina pectoris; K21.9 Gastro-esophageal reflux disease without esophagitis; Z95.5 Presence of coronary angioplasty implant and graft; Z87.891 Personal history of nicotine dependence; Z92.21 Personal history of antineoplastic chemotherapy; Z85.72 Personal history of non-Hodgkin lymphomas; Z95.1 Presence of aortocoronary bypass graft; Z82.49 Family history of ischemic heart disease and other diseases of the circulatory system; Z79.4 Long term (current) use of insulin; R32 Unspecified urinary incontinence; Z96.41 Presence of insulin pump (external) (internal); Z80.0 Family history of malignant neoplasm of digestive organs; E66.01 Morbid (severe) obesity due to excess calories; F41.8 Other specified anxiety disorders; G47.33 Obstructive sleep apnea (adult) (pediatric); E78.5 Hyperlipidemia, unspecified; N31.9 Neuromuscular dysfunction of bladder, unspecified; M48.00 Spinal stenosis, site unspecified
CPT/HCPCS: 36600; 71010; 71275; 80048; 82550; 82552; 82805; 82948; 83036; 83880; 84484; 85025; 85610; 85730; 93005; 93306; 94060; 94620; 94640; 94664; 96374; 96375; J1650; J1815; J1940; J2920; J2930; Q9967

== ENCOUNTER → 2016-03-18 | Outpatient (CLI) | payer OTHER ==
[~2016-03-18] MED LIST changes: +ALBU0.08 NEB; -ALPR.25 PO; -ATOR40TA PO; +ATOR40TA16 PO; -BUPR-175 PO; +FURO1TAB60 PO; +FURO1TAB62 PO; -GABA100C4 PO; +GABA600T PO; -HUMUINJ5 SQ; +HYDR-3288 PO; -HYDR-3580 PO; +INSU100V2 SQ; +K-TA10TA PO; -LEXA10TA PO; +LEXA20TA PO; +LOSA25TA PO; -LOSA25TA31 PO; -METO25 PO; +METO25TA3 PO; +PERC5TAB12 PO; -PLAV75TA PO; +PLAV75TA29 PO; +POLY10O EACH EYE; +POTA20TA5 PO; +PRED20 PO; +SPIRCAP INH; +VENTAER INH; +WELLTAB39 PO
[2016-03-18 12:37] LABS: BICARBONATE 32.8 MEQ/L (21.0-32.0); POTASSIUM 4.6 MEQ/L (3.5-5.1)
== END ==
LOC: CLAB 11:52
PROVIDERS: ATTEND Internal Medicine
DX: I50.9 Heart failure, unspecified (principal)
CPT/HCPCS: 36415; 80048

== ENCOUNTER 2016-03-31 12:48 | Inpatient (IN) | payer OTHER ==
[~2016-03-31] VITALS: Ht 177.8 cm; Wt 140.0 kg
[~2016-03-31 12:48] MED LIST changes: -ALBU0.08 NEB; -FURO1TAB62 PO; -HYDR-3288 PO; -K-TA10TA PO; -POLY10O EACH EYE
[2016-03-31 12:55] VITALS: BP 114/58; PULSE 89; RESP 24; TEMP 98.6; O2SAT 87
[2016-03-31] MEDS ORDERED: SODIUM CHLORIDE 0.9% FLUSH 5 ML FLUSH IVF PRN ×2 (13:00→17:45)
[2016-03-31 13:03] VITALS: RESP 24; O2SAT 97
--- NOTE | 2016-03-31 13:06 | PD ---
HPI Chief Complaint: shortness of breath Time Seen by Provider: 13:00 Travel History International Travel<30 days: No Contact w/Intl Traveler<30days: No Traveled to known affect area: No History of Present Illness HPI 55-year-old male with history of insulin-dependent diabetes, MT months ago status post LAD stent, CHF, COPD, obstructive sleep apnea, presents to the ER today for several days history of orthopnea, shortness of breath, dyspnea on exertion according to him and his . He has a 3 pillow orthopnea. He has been coughing with no significant phlegm formation. He denies any fevers, vomiting, abdominal pains, chest pains, or any other symptoms. Modifying Factors: Worse with laying down Associated Signs & Symptoms: Dyspnea on exertion, orthopnea, shortness of breath Risk Factors: CHF PFSH Past Medical History Hx Anticoagulant Therapy: Yes (plavix) Arthritis: Yes Blood Disorders: No Anxiety: Yes Depression: Yes Heart Rhythm Problems: No Cancer: Yes (NON-HODGKINS LYMPHOMA hx 15 yrs ago) Cardiac Catheterization: No Cardiovascular Problems: Yes (MT, CHF, stent in LAD) High Cholesterol: No Chemotherapy: Yes Chest Pain: Yes Congestive Heart Failure: Yes COPD: Yes Diabetes: Yes Diminished Hearing: No Endocrine: No Gastrointestinal Disorders: No GERD: Yes Glaucoma: No Genitourinary: Yes (incontinence) Hepatitis: No Hiatal Hernia: No Hypertension: Yes Immune Disorder: Yes Musculoskeletal: Yes Neurologic: No Reproductive: No Respiratory: Yes (COPD) Integumentary: No Immunizations Current: No Sleep Apnea: Yes Thyroid Disease: No Ulcer: No Past Surgical History Abdominal Surgery: Yes (UMBILICAL HERNIA REPAIR) Coronary Artery Bypass Graft: No Insulin Pump: Yes Other Surgery: Yes (insulin pump ) Social History Alcohol Use: No Tobacco Use: No (FORMER SMOKER) Substance Use: No Allergies-Medications (Allergen,Severity, Reaction): Coded Allergies: No Known Allergies (Unverified , 03/31/16) Reported Meds & Prescriptions Reported Meds & Active Scripts Active Lasix (Furosemide) 40 Mg Tab 40 Mg PO DAILY Spiriva Handihaler (Tiotropium Inh) 18 Mcg Cap 18 Mcg INH DAILY Aspirin EC (Aspirin) 81 Mg Tabdr 81 Mg PO DAILY 30 Days Reported [place] (Hydrocodone-Acetaminophen) 7.5-325 mg Tab 1 Tab PO Q4-6H PRN Albuterol Neb (Albuterol Sulfate) 2.5 Mg/3 Ml Neb 2.5 Mg NEB Q6HR NEB K-Tab (Potassium Chloride) 10 Meq Tab 10 Meq PO DAILY Percocet (Oxycodone-Acetaminophen) 5-325 mg Tab 1 Tab PO Q6H PRN Humulin R Inj (Insulin Human Regular) 1,000 Unit/10 Ml Vial Unknown Dose SQ DAILY Wellbutrin Xl 24 HR (Bupropion HCl) 300 Mg Tab 300 Mg PO DAILY Lexapro (Escitalopram Oxalate) 20 Mg Tab 20 Mg PO HS Gabapentin 600 Mg Tab 600 Mg PO BID Plavix (Clopidogrel Bisulfate) 75 Mg Tab 75 Mg PO DAILY Ranitidine (Ranitidine HCl) 150 Mg Tab 150 Mg PO BID Losartan (Losartan Potassium) 25 Mg Tab 25 Mg PO DAILY Atorvastatin (Atorvastatin Calcium) 40 Mg Tab 40 Mg PO HS Review of Systems Except as stated in HPI: all other systems reviewed are Neg Physical Exam Narrative GENERAL: Well-nourished, well-developed middle age white male patient in no acute distress. Awake and oriented 3. SKIN: Warm and dry. HEAD: Normocephalic. EYES: No scleral icterus. No injection or drainage. NECK: Supple, trachea midline. CARDIOVASCULAR: Regular rate and rhythm without murmurs, gallops, or rubs. RESPIRATORY: Breath sounds equal but decreased at the bases bilaterally. No accessory muscle use. GASTROINTESTINAL: Abdomen soft, non-tender, nondistended. MUSCULOSKELETAL: No cyanosis. Bilateral trace pitting edema the legs. BACK: Nontender without obvious deformity. No CVA tenderness. Data Data Last Documented VS Vital Signs Date Time Temp Pulse Resp B/P Pulse Ox O2 Delivery O2 Flow Rate FiO2 03/31/16 15:47 98.6 98 20 132/56 97 Nasal Cannula 3 Orders Electrocardiogram (03/31/16 ) Complete Blood Count With Diff (03/31/16 13:00) Comprehensive Metabolic Panel (03/31/16 13:00) B-Type Natriuretic Peptide (03/31/16 13:00) Act Partial Throm Time (Ptt) (03/31/16 13:00) Prothrombin Time / Inr (Pt) (03/31/16 13:00) Ckmb (Isoenzyme) Profile (03/31/16 13:00) Troponin I (03/31/16 13:00) Iv Access Insert/Monitor (03/31/16 13:00) Ecg Monitoring (03/31/16 13:00) Oximetry (03/31/16 13:00) Oxygen Administration (03/31/16 13:00) Chest, Single Ap (03/31/16 13:00) Sodium Chloride 0.9% Flush (Ns Flush) (03/31/16 13:00) CKMB (03/31/16 13:11) CKMB% (03/31/16 13:11) Methylprednisolone So Succ Inj (Solumedr (03/31/16 14:15) Albuterol-Ipratropium Neb (Duoneb Neb) (03/31/16 14:15) Albuterol-Ipratropium Neb (Duoneb Neb) (03/31/16 15:00) Labs Laboratory Tests Test 03/31/16 13:11 White Blood Count 8.8 TH/MM3 Red Blood Count 4.71 MIL/MM3 Hemoglobin 13.3 GM/DL Hematocrit 40.3 % Mean Corpuscular Volume 85.6 FL Mean Corpuscular Hemoglobin 28.2 PG Mean Corpuscular Hemoglobin 32.9 % Concent Red Cell Distribution Width 14.4 % Platelet Count 183 TH/MM3 Mean Platelet Volume 8.9 FL Neutrophils (%) (Auto) 70.0 % Lymphocytes (%) (Auto) 17.7 % Monocytes (%) (Auto) 9.6 % Eosinophils (%) (Auto) 1.6 % Basophils (%) (Auto) 1.1 % Neutrophils # (Auto) 6.1 TH/MM3 Lymphocytes # (Auto) 1.6 TH/MM3 Monocytes # (Auto) 0.8 TH/MM3 Eosinophils # (Auto) 0.1 TH/MM3 Basophils # (Auto) 0.1 TH/MM3 CBC Comment DIFF FINAL Differential Comment Prothrombin Time 11.5 SEC Prothromb Time International 1.0 RATIO Ratio Activated Partial 27.4 SEC Thromboplast Time Sodium Level 135 MEQ/L Potassium Level 4.6 MEQ/L Chloride Level 100 MEQ/L Carbon Dioxide Level 31.5 MEQ/L Anion Gap 4 MEQ/L Blood Urea Nitrogen 23 MG/DL Creatinine 1.09 MG/DL Estimat Glomerular Filtration 70 ML/MIN Rate Random Glucose 130 MG/DL Calcium Level 8.1 MG/DL Total Bilirubin 0.7 MG/DL Aspartate Amino Transf 35 U/L (AST/SGOT) Alanine Aminotransferase 59 U/L (ALT/SGPT) Alkaline Phosphatase 77 U/L Total Creatine Kinase 169 U/L Creatine Kinase MB 4.4 NG/ML Troponin I LESS THAN 0.02 NG/ML B-Type Natriuretic Peptide 34 PG/ML Total Protein 6.7 GM/DL Albumin 3.2 GM/DL MDM Medical Decision Making Medical Screen Exam Complete: Yes Emergency Medical Condition: Yes Medical Record Reviewed: Yes Interpretation(s) Laboratory Tests Test 03/31/16 13:11 Monocytes (%) (Auto) 9.6 % (0.0-8.0) Sodium Level 135 MEQ/L (136-145) Anion Gap 4 MEQ/L (5-15) Blood Urea Nitrogen 23 MG/DL (7-18) Estimat Glomerular Filtration 70 ML/MIN (>89) Rate Random Glucose 130 MG/DL (74-106) Calcium Level 8.1 MG/DL (8.5-10.1) Creatine Kinase MB 4.4 NG/ML (0.5-3.6) Troponin I LESS THAN 0.02 NG/ML (0.02-0.05) Albumin 3.2 GM/DL (3.4-5.0) Last 24 hours Impressions Chest X-Ray 03/31/16 1300 Signed Impressions: Service Date/Time: March 13:30 - CONCLUSION: Significant cardiomegaly. Clear lungs. Nacho Iraheta Jr., MD Differential Diagnosis Shortness of breath, dyspnea on exertion, orthopneaCHF exacerbation versus COPD versus pneumonia Narrative Course Chest x-ray did not show any signs of acute pulmonary processes. BMP is negative. Patient was given Solu-Medrol and DuoNeb's in the ER. Symptoms did improve somewhat but patient is still quite short of breath in the ER on exertion. In this point, my plan would be to admit the patient for further treatment of COPD exacerbation. Case is discussed with Dr. Gasca for admission. Diagnosis Primary Impression: COPD (chronic obstructive pulmonary disease) Admitting Information Admitting Physician Requests: Admit Bernie Lombardo MD Mar 31, 2016 13:06 Admitting Information Admitting Physician Requests: Admit Bernie Lombardo MD Mar 31, 2016 13:06
[2016-03-31 13:25] LABS: AUTOMATED NEUTROPHIL # 6.1 TH/MM3 (1.8-7.7); BASOPHIL # 0.1 TH/MM3 (0-0.2); BASOPHIL % 1.1 % (0.0-2.0); EOSINOPHIL # 0.1 TH/MM3 (0-0.4); EOSINOPHIL % 1.6 % (0.0-4.0); HEMATOCRIT 40.3 % (39.0-51.0); HEMO FLAGS DIFF FINAL; LYMPH % 17.7 % (9.0-44.0); LYMPHOCYTE # 1.6 TH/MM3 (1.0-4.8); MEAN CELL VOLUME 85.6 FL (80.0-100.0); MEAN CORPUSCULAR HEMOGLOBIN 28.2 PG (27.0-34.0); MEAN CORPUSCULAR HGB CONC 32.9 % (32.0-36.0); MONO % 9.6 % (0.0-8.0); PLATELET COUNT 183 TH/MM3 (150-450); RED BLOOD COUNT 4.71 MIL/MM3 (4.50-5.90); RED CELL DISTRIBUTION WIDTH 14.4 % (11.6-17.2); WHITE BLOOD COUNT 8.8 TH/MM3 (4.0-11.0)
[2016-03-31 13:35] LABS: APTT (PATIENT) 27.4 SEC (24.3-30.1); PROTHROMBIN TIME - PATIENT 11.5 SEC (9.8-11.6)
--- NOTE | 2016-03-31 13:35 | RADRPT ---
EXAM DATE/TIME: 03/31/2016 13:30 [facility] COMPARISON: CHEST SINGLE AP, March 14, 2016, 16:31. INDICATIONS : Short of breath for 2 weeks. MEDICAL HISTORY : Myocardial infarction. Chronic obstructive pulmonary disease. Congestive heart failure. Non-hodgkins lymphoma SURGICAL HISTORY : Insulin pump, Cardiac catheterization,with stent placed. ENCOUNTER: Initial ACUITY: 2 weeks PAIN SCORE: 2/10 LOCATION: Bilateral chest FINDINGS: A single view of the chest demonstrates the lungs to be symmetrically aerated without evidence of mas s, infiltrate or effusion. Significant cardiomegaly is unchanged.. Osseous structures are intact. CONCLUSION: Significant cardiomegaly. Clear lungs. Nacho Iraheta Jr., MD on March 31, 2016 at 13:33 Board Certified Radiologist. This report was verified electronically.
[2016-03-31 13:43] LABS: ALT (GPT) 59 U/L (12-78); ANION GAP 4 MEQ/L (5-15); AST (GOT) 35 U/L (15-37); BICARBONATE 31.5 MEQ/L (21.0-32.0); BLOOD UREA NITROGEN 23 MG/DL (7-18); CHLORIDE 100 MEQ/L (98-107); GLOMERULAR FILTRATION RATE 70 ML/MIN (>89); POTASSIUM 4.6 MEQ/L (3.5-5.1); SODIUM (NA) 135 MEQ/L (136-145)
[2016-03-31 13:46] LABS: ALKALINE PHOSPHATASE 77 U/L (45-117); CREATINE KINASE 169 U/L (39-308); TOTAL BILIRUBIN ADULT 0.7 MG/DL (0.2-1.0)
[2016-03-31] MEDS ORDERED: K-TA10TA PO (13:50)
[2016-03-31 13:59] LABS: CKMB 4.4 NG/ML (0.5-3.6)
[2016-03-31] MEDS ORDERED: ALBU0.08 NEB (13:59)
[2016-03-31] MEDS ORDERED: HYDR-3288 PO (14:02)
[2016-03-31] MEDS: RESP: ALBUTEROL 2.5 MG/IPRATROPIUM 0.5 MG NEB (SCH) INH ×4 (14:10→15:19)
[2016-03-31] MEDS ORDERED: methylPREDNISolone SOD SUCC 125 MG/2 ML VIAL IV PUSH ONE (14:15)
[2016-03-31 15:47] VITALS: BP 132/56; PULSE 98; RESP 20; TEMP 98.6; O2SAT 97
[2016-03-31] MEDS ORDERED: GLUCAGON 1 MG/ML VIAL OTHER PRN (17:45)
[2016-03-31] MEDS ORDERED: DEXTROSE 50% IN WATER 50 ML VIAL(D50) IV PUSH PRN (17:45)
[2016-03-31] MEDS ORDERED: RESP: ALBUTEROL 2.5 MG/3 ML NEB (PRN) INH (17:45)
--- NOTE | 2016-03-31 17:45 | HHI.HP ---
HPI Service [facility] Primary Care Physician Bebo Granados MD Admission Diagnosis shortness of breath/COPD exacerbation Diagnoses: Chief Complaint: Shortness of breath Travel History International Travel<30 Days: No Contact w/Intl Traveler <30 Da: No Traveled to Known Affected Are: No History of Present Illness 55-year-old male with a past medical history of COPD, diastolic CHF, CAD, DM who presents with shortness of breath. The patient was discharged from the hospital 2 or 3 weeks ago for similar symptoms. He states that whenever he left the hospital he had felt significantly improved at that time. He wanted to go to [place] for his daughter's wedding. He feels like he did too much too fast. He states that on the way to [place] on 03/20, he began requiring oxygen on the flight. He used an oxygen concentrator while he was on vacation. He is having dry cough, feels like he cannot cough up phlegm. He states that yesterday he had episodes of chills and hot flashes, denies any fevers. He does report slight increase in leg swelling since previous hospitalization, but states his lower showing me edema is much improved from when he went into the hospital previously. He does state that he's gained 3 pounds in the past 2 days. He has a follow-up appointment to establish with pulmonology, Dr. Dunham, next week. He did not qualify for home oxygen previously. He had been on steroids for 3 days after previous hospital discharge. Review of Systems Except as stated in HPI: all other systems reviewed are Neg Past Family Social History Past Medical History Coronary artery disease Diabetes mellitus with insulin pump Anxiety/depression Chronic diastolic heart failure History of non-Hodgkin's lymphoma, status post treatment Lower extremity neuropathy Chronic back pain Hypertension Past Surgical History Cardiac catheterization with stent placement October 2015 Umbilical hernia repair Right ankle surgery Reported Medications Lasix (Furosemide) 40 Mg Tab 40 Mg PO DAILY Spiriva Handihaler (Tiotropium Inh) 18 Mcg Cap 18 Mcg INH DAILY Aspirin EC (Aspirin) 81 Mg Tabdr 81 Mg PO DAILY 30 Days [place] (Hydrocodone-Acetaminophen) 7.5-325 mg Tab 1 Tab PO Q4-6H PRN Albuterol Neb (Albuterol Sulfate) 2.5 Mg/3 Ml Neb 2.5 Mg NEB Q6HR NEB K-Tab (Potassium Chloride) 10 Meq Tab 10 Meq PO DAILY Percocet (Oxycodone-Acetaminophen) 5-325 mg Tab 1 Tab PO Q6H PRN Humulin R Inj (Insulin Human Regular) 1,000 Unit/10 Ml Vial Unknown Dose SQ DAILY Wellbutrin Xl 24 HR (Bupropion HCl) 300 Mg Tab 300 Mg PO DAILY Lexapro (Escitalopram Oxalate) 20 Mg Tab 20 Mg PO HS Gabapentin 600 Mg Tab 600 Mg PO BID Plavix (Clopidogrel Bisulfate) 75 Mg Tab 75 Mg PO DAILY Ranitidine (Ranitidine HCl) 150 Mg Tab 150 Mg PO BID Losartan (Losartan Potassium) 25 Mg Tab 25 Mg PO DAILY Atorvastatin (Atorvastatin Calcium) 40 Mg Tab 40 Mg PO HS Allergies: Coded Allergies: No Known Allergies (Unverified , 03/31/16) Active Ordered Medications Current Medications Medications (Trade) Dose Ordered Sig/[place] Start Time Stop Time Status Last Admin (NS Flush) 2 ml UNSCH PRN IVF 03/31/16 13:00 (Ecotrin Ec) 81 mg DAILY PO 04/01/16 09:00 UNV (Lipitor) 40 mg HS PO 03/31/16 21:00 UNV (Wellbutrin Xl 24 Hr) 300 mg DAILY PO 04/01/16 09:00 UNV (Plavix) 75 mg DAILY PO 04/01/16 09:00 UNV (Lexapro) 20 mg HS PO 03/31/16 21:00 UNV (Neurontin) 600 mg BID PO 03/31/16 21:00 UNV ([place] 7.5-325 Mg) 1 tab Q6HR PRN PO 03/31/16 17:45 UNV (Cozaar) 25 mg DAILY PO 04/01/16 09:00 UNV (Percocet 5-325 Mg) 1 tab Q6H PRN PO 03/31/16 17:45 UNV (KCl) 10 meq DAILY PO 04/01/16 09:00 UNV (Zantac) 150 mg BID PO 03/31/16 21:00 UNV (Spiriva Inh) 18 mcg DAILY INH 04/01/16 09:00 UNV Family History Mother and sister had CAD Mother had pancreatic cancer Social History Quit smoking about 40 years ago Denies any alcohol use 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 Morbidly obese. In no acute distress. Sitting up in a chair. SKIN: Warm and dry. No lesions noted. HEENT: Normocephalic. Pupils equal and round. Mucous membranes pink and moist. CARDIOVASCULAR: Regular rate and rhythm. No murmur appreciated. RESPIRATORY: No accessory muscle use. Clear to auscultation. Poor air movement in bilateral bases. No crackles or wheezing. GASTROINTESTINAL: Abdomen soft, non-tender, nondistended. Bowel sounds x4. MUSCULOSKELETAL: No obvious deformities. No clubbing or cyanosis. 2+ lower extremity edema. NEUROLOGICAL: Awake and alert. No focal neurological deficits. Moves upper and lower extremities spontaneously. Normal speech. PSYCHIATRIC: Pleasant mood and affect; insight and judgment normal. Laboratory Laboratory Tests Test 03/31/16 13:11 White Blood Count 8.8 Red Blood Count 4.71 Hemoglobin 13.3 Hematocrit 40.3 Mean Corpuscular Volume 85.6 Mean Corpuscular Hemoglobin 28.2 Mean Corpuscular Hemoglobin 32.9 Concent Red Cell Distribution Width 14.4 Platelet Count 183 Mean Platelet Volume 8.9 Neutrophils (%) (Auto) 70.0 Lymphocytes (%) (Auto) 17.7 Monocytes (%) (Auto) 9.6 Eosinophils (%) (Auto) 1.6 Basophils (%) (Auto) 1.1 Neutrophils # (Auto) 6.1 Lymphocytes # (Auto) 1.6 Monocytes # (Auto) 0.8 Eosinophils # (Auto) 0.1 Basophils # (Auto) 0.1 CBC Comment DIFF FINAL Differential Comment Prothrombin Time 11.5 Prothromb Time International 1.0 Ratio Activated Partial 27.4 Thromboplast Time Sodium Level 135 Potassium Level 4.6 Chloride Level 100 Carbon Dioxide Level 31.5 Anion Gap 4 Blood Urea Nitrogen 23 Creatinine 1.09 Estimat Glomerular Filtration 70 Rate Random Glucose 130 Calcium Level 8.1 Total Bilirubin 0.7 Aspartate Amino Transf 35 (AST/SGOT) Alanine Aminotransferase 59 (ALT/SGPT) Alkaline Phosphatase 77 Total Creatine Kinase 169 Creatine Kinase MB 4.4 Troponin I LESS THAN 0.02 B-Type Natriuretic Peptide 34 Total Protein 6.7 Albumin 3.2 Result Diagram: 03/31/16 1311 03/31/16 1311 Imaging Last Impressions Chest X-Ray 03/31/16 1300 Signed Impressions: Service Date/Time: March 13:30 - CONCLUSION: Significant cardiomegaly. Clear lungs. Nacho Iraheta Jr., MD Assessment and Plan Problem List: (1) COPD (chronic obstructive pulmonary disease) ICD Code: J44.9 Status: Acute (2) CHF (congestive heart failure) ICD Code: I50.9 Status: Acute (3) Type 2 diabetes mellitus ICD Code: E11.9 Status: Chronic Assessment and Plan 55-year-old male with a past medical history of COPD, diastolic CHF, CAD, DM who presented with shortness of breath Acute respiratory failure: Secondary to COPD and CHF as below. Hypoxic with oxygen saturation 87% upon admission. Chest x-ray reviewed with cardiomegaly and clear lungs. Afebrile with no leukocytosis. Continue supplemental oxygen. Treatment as below. May need home oxygen, repeat walk test at [facility]. COPD exacerbation: Previous PFTs reviewed, showed severe restrictive lung disease. Nebs scheduled and as needed. IV Solu-Medrol, taper steroid dose as tolerated. Azithromycin. Continue Spiriva. Add Symbicort. Consider pulmonology consult if no improvement. Guaifenesin for cough. See educator consult. Acute exacerbation of chronic diastolic heart failure: Echocardiogram earlier this month showed normal EF and systolic function. BNP 34. Significant lower extremity edema. Diuresis with IV Lasix twice a day for now, may need to increase home dose to twice daily at discharge. Continue losartan. Caution with beta rhoda with COPD. Diabetes mellitus: Has insulin pump. Initial coverage with SSI with Accu-Cheks while on steroids. Other chronic medical conditions include CAD, depression, hyperlipidemia, chronic back pain, peripheral neuropathy, GERD: Stable at this time and will continue home medications as indicated. DVT prophylaxis: Lovenox Discussed Condition With Patient with at bedside, Dr. Gasca Attending Statement 55 years old male history of COPD, diastolic dysfunction came in with shortness of breath, plane ride became short of breath and hypoxemic no fever or chills cough dry, lungs decreased breath sounds, no wheezes BNP- normal consult his Mixer Tender- Dr. Dunham. this time will arrange for home 02- per patient he passed walk test before Mr Maldonado likely likely has underlying MARCIO- per spouse snores heavily with episodes when his breathing stops briefly he has sleep studies schedule this coming week as OP The exam, history, and the medical decision-making described in the above note were completed with the assistance of the mid-level provider. I reviewed and agree with the findings presented. I attest that I had a [id number] encounter with the patient on the same day, and personally performed and documented my assessment and findings in the medical record. Problem Qualifiers (1) COPD (chronic obstructive pulmonary disease): Qualified Code: J44.1 - Chronic obstructive pulmonary disease with acute exacerbation (2) CHF (congestive heart failure): Qualified Code: I50.33 - Acute on chronic diastolic congestive heart failure (3) Type 2 diabetes mellitus: Qualified Code: E11.40 - Type 2 diabetes mellitus with diabetic neuropathy, with long-term current use of insulin Earnest Galo Mar 31, 2016 17:45 Lolis Gasca MD Mar 31, 2016 18:59
[2016-03-31] MEDS: FUROSEMIDE 40 MG/4 ML VIAL IVP SCH (18:37)
[2016-03-31] MEDS: BUDESONIDE-FORMOTEROL 160/4.5 MCG INHALER INH SCH (21:00)
[2016-03-31 21:01] VITALS: BP 113/59; PULSE 100; RESP 18; TEMP 98.1; O2SAT 98
[2016-03-31] MEDS: ENOXAPARIN SODIUM 40 MG/0.4 ML SYRINGE SQ SCH (21:23)
[2016-03-31] MEDS: FAMOTIDINE 20 MG TAB PO SCH (21:24)
[2016-03-31] MEDS: guaiFENesin E.R. 600 MG TAB PO SCH (21:24)
[2016-03-31] MEDS: ESCITALOPRAM OXALATE 20 MG TAB PO SCH (21:24)
[2016-03-31] MEDS: methylPREDNISolone SOD SUCC 125 MG/2 ML VIAL IVP SCH (21:24)
[2016-03-31] MEDS: GABAPENTIN 300 MG CAP PO SCH (21:24)
[2016-03-31] MEDS: ATORVASTATIN 40 MG TAB PO SCH (21:25)
[2016-03-31] MEDS: SODIUM CHLORIDE 0.9% FLUSH 5 ML FLUSH IVF SCH (21:25)
[2016-03-31] MEDS: ACETAMINOPHEN/HYDROcodone 325 MG/7.5 MG TAB PO PRN (21:28)
[2016-03-31] MEDS: INSULIN ASPART SUPPLEMENTAL SCALE SQ SCH (21:32)
[2016-04-01] VITALS (10 sets, daily range): BP systolic 100–145; BP diastolic 53–87; PULSE 91–110; RESP 19–20; TEMP 95.5–97.9; O2SAT 92–97
[2016-04-01] MEDS: oxyCODONE/ACETAMINOPHEN 5 MG/325 MG TAB PO PRN ×3 (00:01→18:34)
[2016-04-01] MEDS: methylPREDNISolone SOD SUCC 125 MG/2 ML VIAL IVP SCH ×2 (01:25→08:38)
[2016-04-01] MEDS: INSULIN ASPART SUPPLEMENTAL SCALE SQ SCH ×4 (06:48→21:00)
[2016-04-01] MEDS: RESP: ALBUTEROL 2.5 MG/IPRATROPIUM 0.5 MG NEB (SCH) INH ×3 (07:47→20:00)
[2016-04-01] MEDS: FAMOTIDINE 20 MG TAB PO SCH ×2 (08:37→21:39)
[2016-04-01] MEDS: guaiFENesin E.R. 600 MG TAB PO SCH ×2 (08:37→21:39)
[2016-04-01] MEDS: AZITHROMYCIN 250 MG TAB PO SCH (08:37)
[2016-04-01] MEDS: ASPIRIN EC 81 MG TABEC PO SCH (08:37)
[2016-04-01] MEDS: GABAPENTIN 300 MG CAP PO SCH ×2 (08:37→21:39)
[2016-04-01] MEDS: CLOPIDOGREL 75 MG TAB PO SCH (08:37)
[2016-04-01] MEDS: buPROPion HCL 150 MG SUSTAINED RELEASE TAB PO SCH ×2 (08:37→21:39)
[2016-04-01] MEDS: POTASSIUM CHLORIDE 10 MEQ CONTROLLED RELEASE TAB PO SCH (08:37)
[2016-04-01] MEDS: LOSARTAN 25 MG TAB PO SCH (08:38)
[2016-04-01] MEDS: FUROSEMIDE 40 MG/4 ML VIAL IVP SCH (08:38)
[2016-04-01] MEDS: SODIUM CHLORIDE 0.9% FLUSH 5 ML FLUSH IVF SCH ×2 (08:39→21:00)
[2016-04-01] MEDS: ACETAMINOPHEN/HYDROcodone 325 MG/7.5 MG TAB PO PRN ×3 (08:41→22:34)
[2016-04-01] MEDS: BUDESONIDE-FORMOTEROL 160/4.5 MCG INHALER INH SCH ×2 (09:00→22:35)
[2016-04-01 10:41] LABS: BICARBONATE 27.3 MEQ/L (21.0-32.0); POTASSIUM 4.1 MEQ/L (3.5-5.1)
--- NOTE | 2016-04-01 12:55 | HHI.PR ---
Subjective Remarks feeling better minimal cough- no sputum Objective Vitals Vital Signs Date Time Temp Pulse Resp B/P Pulse Ox O2 Delivery O2 Flow Rate FiO2 04/01/16 08:00 96.1 100 20 100/59 96 04/01/16 07:50 95 Nasal Cannula 3.00 04/01/16 04:00 96.8 91 20 112/56 92 04/01/16 01:11 16 04/01/16 01:11 16 04/01/16 00:55 94 Nasal Cannula 4.00 04/01/16 00:03 97.2 96 20 105/53 95 03/31/16 21:01 98.1 100 18 113/59 98 Room Air 03/31/16 15:47 98.6 98 20 132/56 97 Nasal Cannula 3 03/31/16 13:06 87 24 97 Nasal Cannula 3 03/31/16 13:03 97 Nasal Cannula 3 03/31/16 13:03 24 97 Nasal Cannula 3 03/31/16 12:55 98.6 89 24 114/58 87 I/O 03/31/16 03/31/16 03/31/16 04/01/16 04/01/16 04/01/16 07:00 15:00 23:00 07:00 15:00 23:00 Intake Total 200 ml 150 ml Output Total 300 ml Balance 200 ml -150 ml Intake Oral 200 ml 150 ml Output Urine Total 300 ml # Bowel Movements 0 0 Result Diagram: 03/31/16 1311 04/01/16 0925 Imaging Last Impressions Chest X-Ray 03/31/16 1300 Signed Impressions: Service Date/Time: March 13:30 - CONCLUSION: Significant cardiomegaly. Clear lungs. Nacho Iraheta Jr., MD Objective Remarks anicteric lungs no rales, or wheezes, decreased breath sounds regular rhythm abdomen- globularly soft nontender extremites no edema neuro exam- unremarkable A/P Problem List: (1) COPD (chronic obstructive pulmonary disease) ICD Code: J44.9 Status: Acute (2) CHF (congestive heart failure) ICD Code: I50.9 Status: Acute (3) Type 2 diabetes mellitus ICD Code: E11.9 Status: Chronic Assessment and Plan 55-year-old male with a past medical history of COPD, diastolic CHF, CAD, DM who presented with shortness of breath Acute respiratory failure: Secondary to COPD and CHF as below. Hypoxic with oxygen saturation 87% upon admission. Chest x-ray reviewed with cardiomegaly and clear lungs. Afebrile with no leukocytosis. Continue supplemental oxygen. Treatment as below. May need home oxygen, repeat walk test at [place]. will get a VQ scan to r/o PE with recent traavel to LV COPD exacerbation: Previous PFTs reviewed, showed severe restrictive lung disease. Nebs scheduled and as needed. change to po Prednisone. Acute exacerbation of chronic diastolic heart failure: Echocardiogram earlier this month showed normal EF and systolic function. BNP 34. Hold Lasix IV bid- with increase creatinine change to po steroids- Prednisone 20 mg po bid continue nebs and MDIs do walk test- to qualify for home 02 Acute Kidney Injury from over diuresis DC Lasix IV q 12. Gentle hydration 50 cc/hr recheck BMP in am restart po Lasix tomorrow Diabetes mellitus: Has insulin pump. Per patient Insulin pump inot filled. Sliding scale for now sliding scale for now last A1C 2/- 8.1 Other chronic medical conditions include CAD, depression, hyperlipidemia, chronic back pain, peripheral neuropathy, GERD: Stable at this time and will continue home medications as indicated. DVT prophylaxis: Lovenox Problem Qualifiers (1) COPD (chronic obstructive pulmonary disease): Qualified Code: J44.1 - Chronic obstructive pulmonary disease with acute exacerbation (2) CHF (congestive heart failure): Qualified Code: I50.33 - Acute on chronic diastolic congestive heart failure (3) Type 2 diabetes mellitus: Qualified Code: E11.40 - Type 2 diabetes mellitus with diabetic neuropathy, with long-term current use of insulin Lolis Gasca MD Apr 01, 2016 12:55
--- NOTE | 2016-04-01 12:57 | EKG ---
Date Performed: 03/31/2016 Time Performed: 12:56:55 PTAGE: 55 years EKG: Sinus rhythm NORMAL ECG PREVIOUS TRACING : 03/14/2016 16.38.06 Since previous tracing, no significant change noted DOCTOR: Gilbert Gates Interpretating Date/Time 04/01/2016 12:54:49
--- NOTE | 2016-04-01 15:49 | RADRPT ---
EXAM DATE/TIME: 04/01/2016 14:56 [facility] COMPARISON: CHEST SINGLE AP, March 31, 2016, 13:30. INDICATIONS : Shortness of breath for 1 day. History of smoking. DOSE: 8.5 mCi Tc99m MAA IV 0.7 mCi Tc99m DTPA aerosol MEDICAL HISTORY : Chronic obstructive pulmonary disease. Diabetes mellitus type 2. Congestive heart failure. Non hodgki n lymphoma. SURGICAL HISTORY : Inguinal hernia repair. Coronary artery stent. ENCOUNTER: Initial ACUITY: 1 day PAIN SCALE: 2/10 LOCATION: Bilateral chest TECHNIQUE: Following five minutes of tidal breathing of DTPA aerosol, planar images of the lungs were performed in eight projections. The patient was then injected with MAA, and eight-view perfusion scan was perf ormed. FINDINGS: There is a homogeneous pattern of aerosol delivery to the periphery of both lungs. No focal ventilat ory defects are seen. The perfusion lung scan demonstrates a homogenous pattern of uptake in both lungs. No segmental or s ubsegmental defects are seen. CONCLUSION: Low probability for pulmonary embolism. Davey Cummins MD on April 01, 2016 at 15:46 Board Certified Radiologist. This report was verified electronically.
[2016-04-01] MEDS: TIOTROPIUM BROMIDE 18 MCG INH INH SCH (16:27)
[2016-04-01] MEDS: SODIUM CHLOR 0.9% 1000 ML INJ 1,000 ML IV SCH (16:31)
--- NOTE | 2016-04-01 19:29 | MB ---
cc: BETSY DUTTON DATE OF CONSULTATION 04/01/[address] Gasca REASON FOR CONSULTATION Shortness of breath. HISTORY OF PRESENT ILLNESS Mr. 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 He has history of diastolic congestive heart failure, coronary artery disease, diabetes mellitus. The patient was recently admitted in this hospital. He went to [facility] for his daughter's wedding. On the plane, he started desaturating and they said the plane climb down by 2000 feet and he was given supplemental oxygen. He came back to [facility] last week. He was following with Dr. Granados. He has gained more weight and was getting more short of breath so he decided to come to the emergency room. He has increased swelling in his leg, did not have any chest pain. No fever or chills. No night sweats. The patient had evaluation in the hospital. His VQ scan is low probability for pulmonary embolism. Chest x-ray shows cardiomegaly, otherwise, no acute infiltrate. WBC count is 8.8, hemoglobin 13.3, hematocrit 40.3, MCV 85, platelet count 183. Sodium 132, potassium 4.1, chloride 94, CO2 27, BUN 37, creatinine 1.47, glucose 442, BNP 34, troponin less than 0.02. PAST MEDICAL HISTORY 1. History of coronary artery disease, 2. Diastolic congestive heart failure, 3. Diabetes mellitus, 4. Severe restrictive disease and symptoms suggestive of sleep apnea, 5. Non Hodgkin lymphoma status post treatment done in [place] before 21 years ago 6. Hypertension 7. Chronic back pain. MEDICATIONS Currently taking 1. Aspirin 81 mg a day. 2. Wellbutrin SR 150 mg twice a day. 3. Plavix 75 mg a day 4. Cozaar 25 mg a day. 5. Potassium 10 mEq a day. 6. Spiriva once a day. 7. Lipitor 40 mg a day. 8. Lexapro 20 mg a day. 9. Neurontin 600 mg twice a day. 10. Pepcid 20 mg a day. 11. Symbicort twice a day. 12. Zithromax 500 mg daily. 13. Lovenox 40 mg a day. 14. Oxycodone for pain. ALLERGIES NO KNOWN DRUG ALLERGIES. SOCIAL HISTORY He recently got . He has four children. His has three children. No history of smoking, alcohol abuse. 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 FAMILY HISTORY Noncontributory REVIEW OF SYSTEMS He is able to walk only short distances. He has insulin pump and has chronic pain and follows with Dr. Shah. He has history of sleep apnea. PHYSICAL EXAMINATION GENERAL: Well-built, well-nourished obese male mildly short of breath not in acute distress. VITAL SIGNS: Blood pressure 120/87, heart rate 110, respirations 20, temperature 96.3 HEENT: Pupils are equal and reactive to light. Oral mucosa, nasal mucosa normal. NECK: Supple. JVP not raised. CHEST: Equal bilaterally, has few basilar rales. CARDIOVASCULAR: S1, S2 normal. ABDOMEN: Benign EXTREMITIES: 1+ pedal edema. IMPRESSION 1. Shortness of breath due to underlying severe restrictive lung dizziness 2. Obstructive sleep apnea. 3. Diastolic congestive heart failure, 4. Diabetes mellitus 5. Obesity 6. History of non-Hodgkin lymphoma. PLAN I discussed with the patient he will need a sleep study as outpatient and restart him on C-PAP therapy. We will evaluate him for oxygen walk test. If he does not require oxygen then we will get an overnight oximetry as an outpatient. He is off steroids. Monitor blood sugar, aerosol treatment. Further treatment will depend on the course in the hospital. Thank you, Dr. Gasca, for this consultation. MD MICHAELA Funes/ /6:53 PM /7:07 PM
[2016-04-01] MEDS: ESCITALOPRAM OXALATE 20 MG TAB PO SCH (21:39)
[2016-04-01] MEDS: ATORVASTATIN 40 MG TAB PO SCH (21:39)
[2016-04-01] MEDS: ENOXAPARIN SODIUM 40 MG/0.4 ML SYRINGE SQ SCH (21:41)
[2016-04-02 04:00] VITALS: BP 106/71; PULSE 96; RESP 19; TEMP 96.1; O2SAT 95
[2016-04-02] MEDS: INSULIN ASPART SUPPLEMENTAL SCALE SQ SCH ×3 (06:30→16:11)
[2016-04-02] MEDS: ACETAMINOPHEN/HYDROcodone 325 MG/7.5 MG TAB PO PRN (06:32)
[2016-04-02] MEDS: SODIUM CHLORIDE 0.9% FLUSH 5 ML FLUSH IVF SCH (09:00)
[2016-04-02] MEDS: RESP: ALBUTEROL 2.5 MG/IPRATROPIUM 0.5 MG NEB (SCH) INH ×2 (09:02→13:55)
[2016-04-02] MEDS: BUDESONIDE-FORMOTEROL 160/4.5 MCG INHALER INH SCH (09:26)
[2016-04-02] MEDS: ASPIRIN EC 81 MG TABEC PO SCH (09:28)
[2016-04-02] MEDS: guaiFENesin E.R. 600 MG TAB PO SCH (09:28)
[2016-04-02] MEDS: GABAPENTIN 300 MG CAP PO SCH (09:28)
[2016-04-02] MEDS: FAMOTIDINE 20 MG TAB PO SCH (09:28)
[2016-04-02] MEDS: buPROPion HCL 150 MG SUSTAINED RELEASE TAB PO SCH (09:28)
[2016-04-02] MEDS: AZITHROMYCIN 250 MG TAB PO SCH (09:28)
[2016-04-02] MEDS: CLOPIDOGREL 75 MG TAB PO SCH (09:28)
[2016-04-02] MEDS: LOSARTAN 25 MG TAB PO SCH (09:37)
[2016-04-02] MEDS: POTASSIUM CHLORIDE 10 MEQ CONTROLLED RELEASE TAB PO SCH (09:37)
[2016-04-02] MEDS: SODIUM CHLOR 0.9% 1000 ML INJ 1,000 ML IV SCH (09:38)
[2016-04-02] MEDS: TIOTROPIUM BROMIDE 18 MCG INH INH SCH (09:38)
[2016-04-02 09:50] VITALS: BP 127/83; PULSE 97; RESP 24; O2SAT 95
[2016-04-02 10:04] LABS: BICARBONATE 30.2 MEQ/L (21.0-32.0); POTASSIUM 3.7 MEQ/L (3.5-5.1)
[2016-04-02] MEDS: oxyCODONE/ACETAMINOPHEN 5 MG/325 MG TAB PO PRN (10:43)
[2016-04-02 12:00] VITALS: BP 114/64; PULSE 82; RESP 20; TEMP 96.4; O2SAT 97
[2016-04-02] MEDS ORDERED: ALBUTEROL SULFATE 90 MCG/ACT HFA 8 GM INHALER INH PRN ×2 (15:15→16:00)
--- NOTE | 2016-04-02 15:20 | HHI.PR ---
Subjective Remarks feeling better cough minimal Objective Vitals Vital Signs Date Time Temp Pulse Resp B/P Pulse Ox O2 Delivery O2 Flow Rate FiO2 04/02/16 12:00 96.4 82 20 114/64 97 04/02/16 09:50 97 24 127/83 95 04/02/16 09:03 Nasal Cannula 2.00 04/02/16 04:00 96.1 96 19 106/71 95 04/02/16 00:08 20 04/01/16 23:00 97.9 97 19 145/69 97 04/01/16 21:49 19 04/01/16 20:34 93 Nasal Cannula 2.00 04/01/16 20:00 95.5 102 20 126/69 96 04/01/16 16:00 96.3 110 20 120/87 95 I/O 04/01/16 04/01/16 04/01/16 04/02/16 04/02/16 04/02/16 07:00 15:00 23:00 07:00 15:00 23:00 Intake Total 150 ml 360 ml 498 ml 840 ml Output Total 300 ml 800 ml 680 ml 800 ml Balance -150 ml -800 ml 360 ml -182 ml 40 ml Intake Oral 150 ml 360 ml 840 ml IV Total 498 ml Output Urine Total 300 ml 800 ml 680 ml 800 ml # Bowel Movements 0 Result Diagram: 03/31/16 1311 04/02/16 0840 Imaging Last Impressions Lung Scan-VQ Nuclear Medicine 04/01/16 0000 Signed Impressions: Service Date/Time: Friday, April 01, 2016 14:56 - CONCLUSION: Low probability for pulmonary embolism. Davey Cummins MD Chest X-Ray 03/31/16 1300 Signed Impressions: Service Date/Time: March 13:30 - CONCLUSION: Significant cardiomegaly. Clear lungs. Nacho Iraheta Jr., MD Objective Remarks anicteric lungs no rales, or wheezes, decreased breath sounds regular rhythm abdomen- globularly soft nontender extremities no edema neuro exam- unremarkable A/P Problem List: (1) COPD (chronic obstructive pulmonary disease) ICD Code: J44.9 Status: Acute (2) CHF (congestive heart failure) ICD Code: I50.9 Status: Acute (3) Type 2 diabetes mellitus ICD Code: E11.9 Status: Chronic Assessment and Plan 55-year-old male with a past medical history of COPD, diastolic CHF, CAD, DM who presented with shortness of breath Acute respiratory failure: Secondary to COPD Hypoxic with oxygen saturation 87% upon admission. Chest x-ray reviewed with cardiomegaly and clear lungs. Afebrile with no leukocytosis. Continue supplemental oxygen. continue on spiriva, budesonide/formeterol MDI Proventil MDI q 4- rescue inhaler do 02 walk test Acute exacerbation of chronic diastolic heart failure: Echocardiogram earlier this month showed normal EF and systolic function. BNP 34. Lasix po as OP resume Acute Kidney Injury from over diuresis- resolved with DC of Lasix IV resume home dose of lasix Diabetes mellitus: Has insulin pump. - restarted yesterday last A1C 2- 8.1 discussed with him goals Other chronic medical conditions include CAD, depression, hyperlipidemia, chronic back pain, peripheral neuropathy, GERD: Stable at this time and will continue home medications as indicated. DVT prophylaxis: Lovenox DC today Diet- heart healthy ADA diet Activity- as tolerated- d/w him to limited strenuous activity and as tolerated- FF up with Dr. Dunham as OP- will schedule sleep studies as OP will arrange for home 02 if fails walk test continue home meds FF up with PCP Problem Qualifiers (1) COPD (chronic obstructive pulmonary disease): Qualified Code: J44.1 - Chronic obstructive pulmonary disease with acute exacerbation (2) CHF (congestive heart failure): Qualified Code: I50.33 - Acute on chronic diastolic congestive heart failure (3) Type 2 diabetes mellitus: Qualified Code: E11.40 - Type 2 diabetes mellitus with diabetic neuropathy, with long-term current use of insulin Lolis Gasca MD Apr 02, 2016 15:20
[2016-04-02 16:00] VITALS: BP 117/73; PULSE 88; RESP 20; O2SAT 92
[2016-04-02] MEDS ORDERED: VENTAER INH (18:08)
[2016-04-02] MEDS ORDERED: FURO1TAB62 PO (18:10)
== END 2016-04-02 18:45 | disposition home or self-care (01) | DRG 189 ==
LOC: NEPE 12:48 → NEDA 16:13 → OBSVTOIN 17:43 → NEDH 21:43 → HOCB 23:46
PROVIDERS: ADMIT Internal Medicine; ATTEND Internal Medicine
DX: J96.01 Acute respiratory failure with hypoxia (principal); I50.33 Acute on chronic diastolic (congestive) heart failure; N17.9 Acute kidney failure, unspecified; E11.42 Type 2 diabetes mellitus with diabetic polyneuropathy; J44.1 Chronic obstructive pulmonary disease with (acute) exacerbation; Z68.41 Body mass index [BMI] 40.0-44.9, adult; I25.10 Atherosclerotic heart disease of native coronary artery without angina pectoris; E66.01 Morbid (severe) obesity due to excess calories; E78.5 Hyperlipidemia, unspecified; G47.33 Obstructive sleep apnea (adult) (pediatric); I11.0 Hypertensive heart disease with heart failure; K21.9 Gastro-esophageal reflux disease without esophagitis; F41.9 Anxiety disorder, unspecified; F32.9 Major depressive disorder, single episode, unspecified; Z87.891 Personal history of nicotine dependence; Z96.41 Presence of insulin pump (external) (internal); Z95.5 Presence of coronary angioplasty implant and graft; Z79.4 Long term (current) use of insulin
CPT/HCPCS: 71010; 78582; 80048; 80053; 82550; 82552; 82947; 82948; 83880; 84484; 85025; 85610; 85730; 93005; 94620; 94640; 94664; 96374; A9540; A9567; J1650; J1815; J1940; J2930; J7030

== ENCOUNTER → 2016-04-18 | Outpatient (CLI) | payer OTHER ==
[~2016-04-18] MED LIST changes: +ALBU0.08 NEB; -FURO1TAB60 PO; +FURO1TAB62 PO; +HYDR-3288 PO; +K-TA10TA PO; -METO25TA3 PO; +POLY10O EACH EYE; -POTA20TA5 PO; -PRED20 PO
--- NOTE | 2016-04-19 14:14 | RSPPFT ---
DATE OF PROCEDURE: 04/18/16 COMMENTS: Spirometry with FVC of 2.8, FEV1 of 2.3, FEV1/FVC ratio at 82%. Slow vital capacity is 53% of predicted. TLC is 100% of predicted. Diffusion capacity is 58% however, normal when corrected for alveolar volume. IMPRESSION: 1. No evidence of airways obstruction or restriction. 2. Reduced diffusion capacity however normal when corrected for alveolar volume.
== END ==
LOC: HRSP 09:10
PROVIDERS: ATTEND Internal Medicine Sleep Medicine
DX: R06.89 Other abnormalities of breathing (principal)
CPT/HCPCS: 94060; 94726; 94729

== ENCOUNTER → 2016-05-05 | Outpatient (CLI) | payer OTHER ==
[2016-05-05 10:36] LABS: MICRO ALBUMIN RANDOM URINE RAW 6.1 MG/L (0.0-30.0)
[2016-05-05 10:38] LABS: ANION GAP 4 MEQ/L (5-15); BICARBONATE 31.5 MEQ/L (21.0-32.0); BLOOD UREA NITROGEN 17 MG/DL (7-18); CHLORIDE 102 MEQ/L (98-107); GLOMERULAR FILTRATION RATE 96 ML/MIN (>89); GLUCOSE,FASTING 190 MG/DL (74-99); POTASSIUM 4.7 MEQ/L (3.5-5.1); SODIUM (NA) 137 MEQ/L (136-145)
[2016-05-05 10:41] LABS: ALKALINE PHOSPHATASE 78 U/L (45-117); ALT (GPT) 57 U/L (12-78); AST (GOT) 30 U/L (15-37); HDL CHOLESTEROL 46.7 MG/DL (40.0-60.0); LDL CHOLESTEROL 82 MG/DL (0-99); TOTAL BILIRUBIN ADULT 0.5 MG/DL (0.2-1.0)
[2016-05-05 16:16] LABS: HEMOGLOBIN A1a 1.1 %; HEMOGLOBIN A1b 0.9 %; HEMOGLOBIN Ao 80.7 %; HEMOGLOBIN F 1.4 %; HEMOGLOBIN LA1C 2.6 %; HEMOGLOBIN P3 4.7 %
== END ==
LOC: CLAB 09:47
PROVIDERS: ATTEND Internal Medicine Sleep Medicine
DX: I10 Essential (primary) hypertension (principal); G47.9 Sleep disorder, unspecified; E11.40 Type 2 diabetes mellitus with diabetic neuropathy, unspecified; E78.5 Hyperlipidemia, unspecified
CPT/HCPCS: 36415; 80053; 80061; 82043; 83036; 84443

== ENCOUNTER 2016-07-30 19:41 | Emergency (ER) | payer OTHER ==
[~2016-07-30 19:41] MED LIST changes: -POLY10O EACH EYE
[2016-07-30] MEDS ORDERED: POLY10O EACH EYE (19:50)
--- NOTE | 2016-07-30 19:51 | PD ---
HPI Chief Complaint: r eye irritation Time Seen by Provider: 19:49 Travel History International Travel<30 days: No Contact w/Intl Traveler<30days: No Traveled to known affect area: No History of Present Illness HPI 55-year-old male presents to emergency department initially with his who is here for another incident but checked himself in for evaluation right eye irritation and drainage. Patient states he notices this morning that his right eye was red and irritated. He thought it may have been from his seat Pap but throughout the day the redness spread and the eye began to produce a purulent discharge. Has no foreign body sensation. No visual changes. No fever or chills. No recollection of injury. No other symptoms to report. PFSH Past Medical History Hx Anticoagulant Therapy: Yes (plavix) Arthritis: Yes Autoimmune Disease: No Blood Disorders: No Anxiety: Yes Depression: Yes Heart Rhythm Problems: No Cancer: Yes (NON-HODGKINS LYMPHOMA hx 15 yrs ago) Cardiac Catheterization: No Cardiovascular Problems: Yes (SD, CHF, stent in LAD) High Cholesterol: No Chemotherapy: Yes Chest Pain: Yes Congestive Heart Failure: Yes COPD: Yes Coronary Artery Disease: Yes Diabetes: Yes Diminished Hearing: No Endocrine: No Gastrointestinal Disorders: No GERD: Yes Glaucoma: No Genitourinary: Yes (incontinence) Hepatitis: No Hiatal Hernia: No Hypertension: Yes Immune Disorder: No Musculoskeletal: Yes Neurologic: No Reproductive: No Respiratory: Yes (COPD) Integumentary: No Immunizations Current: No Sleep Apnea: Yes Thyroid Disease: No Ulcer: No Past Surgical History Abdominal Surgery: Yes (UMBILICAL HERNIA REPAIR) Coronary Artery Bypass Graft: No Coronary Stent: Yes Insulin Pump: Yes Other Surgery: Yes (insulin pump ) Social History Alcohol Use: No Tobacco Use: No (FORMER SMOKER) Substance Use: No Allergies-Medications (Allergen,Severity, Reaction): Coded Allergies: No Known Allergies (Unverified , 07/30/16) Reported Meds & Prescriptions Reported Meds & Active Scripts Active Polytrim Opth Drops (Polymyxin/Trimethoprim Sulfate) 10,000-0.1 Unit/Ml-% Soln 1 Drop EACH EYE Q6HR Lasix (Furosemide) 20 Mg Tab 20 Mg PO DAILY Ventolin Hfa 18 GM Inh (Albuterol Sulfate) 90 Mcg/Act Aer 2 Puff INH Q4H PRN Spiriva Handihaler (Tiotropium Inh) 18 Mcg Cap 18 Mcg INH DAILY Aspirin EC (Aspirin) 81 Mg Tabdr 81 Mg PO DAILY 30 Days Reported [place] (Hydrocodone-Acetaminophen) 7.5-325 mg Tab 1 Tab PO Q4-6H PRN Albuterol Neb (Albuterol Sulfate) 2.5 Mg/3 Ml Neb 2.5 Mg NEB Q6HR NEB K-Tab (Potassium Chloride) 10 Meq Tab 10 Meq PO DAILY Percocet (Oxycodone-Acetaminophen) 5-325 mg Tab 1 Tab PO Q6H PRN Humulin R Inj (Insulin Human Regular) 1,000 Unit/10 Ml Vial Unknown Dose SQ DAILY Wellbutrin Xl 24 HR (Bupropion HCl) 300 Mg Tab 300 Mg PO DAILY Lexapro (Escitalopram Oxalate) 20 Mg Tab 20 Mg PO HS Gabapentin 600 Mg Tab 600 Mg PO BID Plavix (Clopidogrel Bisulfate) 75 Mg Tab 75 Mg PO DAILY Ranitidine (Ranitidine HCl) 150 Mg Tab 150 Mg PO BID Losartan (Losartan Potassium) 25 Mg Tab 25 Mg PO DAILY Atorvastatin (Atorvastatin Calcium) 40 Mg Tab 40 Mg PO HS Review of Systems Except as stated in HPI: all other systems reviewed are Neg Physical Exam Narrative GENERAL: Well-nourished, well-developed patient in no acute distress SKIN: Focused skin assessment warm/dry. HEAD: Normocephalic. Erythema or edema EYES: No scleral icterus. I with scleral injection, purulent drainage and crusting along the eye lashes. No foreign body identified. No increased intake with fluorescein NECK: Supple, trachea midline. No JVD or lymphadenopathy. CARDIOVASCULAR: Regular rate and rhythm without murmurs, gallops, or rubs. RESPIRATORY: Breath sounds equal bilaterally. No accessory muscle use. Data Data Last Documented VS Vital Signs Date Time Temp Pulse Resp B/P Pulse Ox O2 Delivery O2 Flow Rate FiO2 07/30/16 20:00 98.5 109 19 134/80 95 Orders Polymyxin/Trimethop Opht Soln (Polytrim (07/30/16 20:00) MDM Medical Decision Making Medical Screen Exam Complete: Yes Emergency Medical Condition: Yes Medical Record Reviewed: Yes Differential Diagnosis Conjunctivitis versus iritis versus keratitis versus corneal abrasion Narrative Course 55-year-old male presents to the emergency department for evaluation right eye irritation. Physical finding and exam is consistent with conjunctivitis. Patient is given first dose of Polytrim drops here in the emergency department. He'll be discharged home at this time. He agrees to return immediately if any acute worsening of symptoms. 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
[2016-07-30 20:00] VITALS: BP 134/80; PULSE 109; RESP 19; TEMP 98.5; O2SAT 95
[2016-07-30] MEDS ORDERED: POLYMYXIN/TRIMETHOPRIM OPHT SOLN 10 ML BTL EACH EYE SCH (20:00)
== END 2016-07-30 20:37 | disposition home or self-care (01) ==
LOC: NEPC 19:41
DX: H10.31 Unspecified acute conjunctivitis, right eye (principal); I50.9 Heart failure, unspecified; J44.9 Chronic obstructive pulmonary disease, unspecified; E11.9 Type 2 diabetes mellitus without complications; K21.9 Gastro-esophageal reflux disease without esophagitis; I25.2 Old myocardial infarction; I10 Essential (primary) hypertension; G47.30 Sleep apnea, unspecified
CPT/HCPCS: 99283